=== PATIENT | female | born 1930 | race Caucasian/White ===

== ENCOUNTER 2016-07-06 16:48 | Inpatient (IN) | payer MEDICARE, BC ==
[~2016-07-06] VITALS: Ht 162.6 cm; Wt 68.7 kg
--- NOTE | ~2016-07-06 | DS ---
PATIENT'S NAME: SERA MUIR [facility] AGE: 85 Y [address] ROOM: [address] [place] [address] LOCATION: GPCU ADMIT DATE: 07/06/2016 Discharge Summary DISCHARGE DATE: 07/08/2016 FAMILY PHYSICIAN: Jah Lucia MD ATTENDING PHYSICIAN: Jah Lucia FINAL DIAGNOSES: 1. Supraventricular tachycardia, specific etiology undetermined, resolved. 2. Known coronary artery disease with stable angina factors. 3. Diabetes mellitus type 2. 4. Hypertension, essential. HOSPITAL COURSE: The patient is admitted through the emergency room with an elevated heartbeat that responded to a couple of doses of adenosine in the ER along with a Cardizem drip. The patient was seen by Dr. Kuhn, [facility] neurology technologist. The patient's medicines were adjusted and on the day of dismissal, she was seen by her primary neurology technologist, Dr. Kali Waldrop, and her medicines were adjusted. Her pulse rate was under 100 prior to going home and electrolyte, sugar, and CBC were otherwise grossly normal. She is dismissed from the hospital on a diabetic diet, activity as tolerated, and she will follow up with Dr. Waldrop in the office per his recommendation and see me in the office in a month. Her medications were adjusted and the med list she is dismissed on has been blessed by Dr. Waldrop. If she has a fast heartbeat, chest pain, or shortness of breath, she is to be seen back earlier and she understands. JAH LUCIA MD PORCELAIN TURNER/modl /[id number] d: 07/08/162225 t: 07/14/16 1025, DISCHARGE SUMMARY
--- NOTE | ~2016-07-06 | ECHO ---
Transthoracic Echocardiography Report (TTE) Demographics Patient Name SERA MUIR Date of Study 07/07/2016 Patient Number [id number] Visit Number [id number] Date of 1930 Room Number G6326 Gender Female Number Age 85 year(s) Referring Rea De La Fuente [employer] Ashley Sumner RDCS, Physician RVT Bam Murillo Physician Interpreting Bam Murillo [employer] Workers Physician Trudy Arias MD Supervising Ordering Bam Murillo MD/MLP Physician Nurse Stress [employer] Technical Systems Specialist Conclusions Summary Hyperdynamic LV systolic function. The estimated left ventricular ejection fraction is > 75%. Moderate concentric left ventricular hypertrophy. Diastolic assessment reveals Grade II pseudonormal diastolic function . The left atrium is severely dilated by LA volume index measurement. Moderate mitral annular calcification. Mild mitral valve stenosis. The mean gradient is 5 mmHg. Moderate mitral regurgitation. The aortic valve is moderately sclerotic. There is moderate aortic regurgitation by color Doppler. Mild-moderate tricuspid regurgitation by color Doppler. There is severe pulmonary hypertension. The pulmonary pressure (RVSP) is 59.62 mmHg. Procedure Type of Study TTE procedure:2D Echocardiogram. Procedure Date Date: 07/07/2016 Start: 09:22 AM Study Location: Inpatient Portable Technical Quality: Adequate visualization Indications:Chest pain. Appropriate Use Criteria: 9 Patient Status: Routine HR: 66 bpm BP: 152/70 mmHg M-Mode/2D Measurements LV Diastolic Dimension: 3.05 cm LV Systolic Dimension: 1.85 cm LV Septum Diastolic: 1.44 cm LV PW Diastolic: 1.47 cm AO Root Dimension: 3.1 cm Cardiac Output: 7.9 l/min AV Cusp Separation: 1.5 cm RV Diastolic Dimension: 3.28 cm LA volume: 82 ml MV EPSS: 0.2 cm LVOT: 2.2 cm RV Base: 2.69 cm LVOT VTI: 31.5 cm RV Mid: 2.2 cm LV Stroke volume: 119.68 ml TAPSE: 2.29 cm TDI-S': 14.4 cm/s Doppler Measurements AV Peak Velocity: 1.48 m/s MV Peak E-Wave: 1.47 m/s AV Peak Gradient: 8.76 mmHg MV Peak A-Wave: 0.91 m/s AV Mean Gradient: 6 mmHg MV E/A Ratio: 1.61 LVOT Peak Velocity: 1.45 m/s MV Mean Gradient: 5 mmHg AV P1/2t: 471 msec MV Deceleration Time: 173 msec TR Velocity:3.34 m/s PV Peak Velocity: 0.97 m/s TR Gradient:44.62 mmHg PV Peak Gradient: 3.77 mmHg Estimated RAP:15 mmHg Estimated PASP: 59.62 mmHg Estimated RVSP: 60 mmHg A' Septal Velocity: 0.05 m/s E' Septal Velocity: 0.04 m/s A' Lateral Velocity: 0.05 m/s E' Lateral Velocity: 0.07 m/s Findings Left Ventricle Moderate concentric left ventricular hypertrophy. Diastolic assessment reveals Grade II pseudonormal diastolic function . Right Ventricle Normal right ventricle structure and function. Left Atrium The left atrium is severely dilated by LA volume index measurement. Right Atrium Normal right atrial size. IVC measures 2 cm with inspiratory collapse. Mitral Valve Moderate mitral annular calcification. Mild mitral valve stenosis. The mean gradient is 5 mmHg. Moderate mitral regurgitation by color Doppler. Aortic Valve The aortic valve is moderately sclerotic. There is moderate aortic regurgitation by color Doppler. Tricuspid Valve Mild-moderate tricuspid regurgitation by color Doppler. There is severe pulmonary hypertension. The pulmonary pressure (RVSP) is 59.62 mmHg. Pulmonic Valve Mild pulmonic valve regurgitation by color Doppler. Pericardial Effusion No evidence of pericardial effusion. Miscellaneous Visualized portions of the aortic root and ascending aorta appear normal in size. Pleural Effusion No evidence of pleural effusion. Signature dtt: FABIEN LOWE dtd: 07/07/16 0922 Physician Self Edit
--- NOTE | ~2016-07-06 | HP ---
PATIENT'S NAME: LISA MUIR [facility] AGE: 85 Y [address] ROOM: [place] [address] LOCATION: GPCU ADMIT DATE: 07/06/2016 History & Physical DISCHARGE DATE: FAMILY PHYSICIAN: KRISTINE JALLOH MD ATTENDING PHYSICIAN: KRISTINE JALLOH DATE OF SERVICE: CHIEF COMPLAINT: Palpitations. HISTORY IS PRESENT ILLNESS: Lisa is a pleasant 85-year-old female, well known to me, in the outpatient arena, who presented to the emergency room with a friend because she felt her heart beat was going too fast. Here in the emergency room, she was seen by Dr. Kelechi Mota. She required adenosine and Cardizem to get her pulse rate come down from 170-180 down to the 90s. I saw her in the emergency room. She is resting quietly. I have obtained cardiac consultation with [facility], residential concierge interpersonal communications professor, Dr. Kuhn. The patient understands that she is a type 2 diabetic with known carotid disease, atrial fibrillation, hypertension, hypothyroidism, and has been recently seen by her primary residential concierge Dr. Kali Waldrop over the last three months. We will follow along daily. I really think Cardiology can direct program here to get her better. She is on, 1. Cozaar 50 mg twice a day. 2. Lasix 40 mg a day. 3. Synthroid 0.05 mg a day. 4. Glyburide/Amaryl 1 mg a day. 5. Metformin 500 mg 3 times a day. 6. Rythmol 150 twice a day. 7. Tylenol. 8. Aspirin 81. 9. Vitamins. ALLERGIES TO MEDICATIONS: To codeine. PREVIOUS OPERATIONS: See old records. PATIENT'S NAME: LISA MUIR [facility] AGE: 85 Y [address] ROOM: [place] [address] LOCATION: GPCU ADMIT DATE: 07/06/2016 History & Physical DISCHARGE DATE: FAMILY PHYSICIAN: KRISTINE JALLOH MD ATTENDING PHYSICIAN: KRISTINE JALLOH SOCIAL HISTORY: Does not smoke. FAMILY HISTORY: Noncontributory. IMMUNIZATIONS: Up to date for age. REVIEW OF SYSTEMS: HEENT: She has had no visual changes. No earache. No sore throat. ENDOCRINE: She has hypothyroid and type 2 diabetic, treated with oral agents. LUNGS: No history of asthma. HEART: As mentioned. GI: No recent nausea, vomiting, diarrhea, change in bowel habits, or melena. : No dysuria or frequency. 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 NEUROLOGIC: History of previous TIA. No recent stroke syndrome. Mood, no recent depression or anxiety. PHYSICAL EXAMINATION: GENERAL: Lara-haired female who appears her stated age. She is oriented to person, place, time, and competent. HEENT: Shows pupils react to light. TMs not visualized. Posterior pharynx clear. NECK: Unremarkable. I did not listen for bruits. Thyroid is not enlarged. LUNGS: Clear to auscultation. HEART: Shows no murmur, gallop, or rub. ABDOMEN: Benign without point tenderness. PELVIC: Not done. RECTAL: Not done. BREASTS: Not done. EXTREMITIES: Show trace edema. Pulses full throughout. NEUROLOGIC: Grossly intact without lateralizing signs. Cranial nerves intact. ASSESSMENT: 1. Supraventricular tachycardia, rate 170, resolved with adenosine and Cardizem drip. 2. History of coronary artery disease. 3. Hypertension, essential. 4. Atrial fibrillation. 5. Hypothyroidism, on replacement. 6. Diabetes mellitus type 2. PATIENT'S NAME: LISA MUIR [facility] AGE: 85 Y [address] ROOM: [place] [address] [facility] AD[facility] DATE: 07/06/2016 History & Physical DISCHARGE DATE: FAMILY PHYSICIAN: KRISTINE JALLOH MD ATTENDING PHYSICIAN: KRISTINE JALLOH PLAN: As above. KRISTINE JALLOH MD MEDICAL DIRECTOR OCCUPATIONAL HEALTH/modl /[id number] D: T: HISTORY & PHYSICAL
--- NOTE | ~2016-07-06 | ER ---
PATIENT'S NAME: SERA MUIR [facility] AGE: 85 Y [address] ROOM: [place] [address] LOCATION: GPCU ADMIT DATE: 07/06/2016 ER/Outpatient Report DISCHARGE DATE: FAMILY PHYSICIAN: KRISTINE LUCIA MD ATTENDING PHYSICIAN: KRISTINE LUCIA Admission date and time documented on the medical record. I saw the patient at 1700 hours. CHIEF COMPLAINT: Chest pain, tachyarrhythmia. HISTORY OF PRESENT ILLNESS: This patient is an 85-year-old female who presented to the emergency room with 5-hour history of mid anterior chest pain, nonradiating, accompanied by shortness of breath, mild diaphoresis, and generalized weakness. Little lightheaded, dizzy at times, but no syncope or near syncope. No headache; eyes, ears, nose, throat, neck, or spine pain. No fall or trauma. No recent colds, coughs, flus, fever, chills, or sweats. Mid anterior chest pain is nonradiating. She has no shoulder, arm, neck, or jaw pain or mid back pain. She was found to have regular tachyarrhythmia at a rate of 178 with a blood pressure 133/90. She was saturating 96% on room air. No abdominal pain, nausea, vomiting, diarrhea, or urinary complaints. No joint or muscle swelling, redness, or pain. No skin eruptions or rash. Does have hypothyroidism, gvo-glaxank-zvylhkwww diabetes mellitus type 2. Does have depression and anxiety. No neuro changes. HOME MEDICATIONS: See attached medication list. ALLERGIES: NUTS AND CODEINE. SOCIAL HISTORY: Nonsmoker and nondrinker. SIGNIFICANT PAST MEDICAL HISTORY: Hypertension, macular degeneration, hypothyroidism, wwo-sshaujp-uuhittxgp diabetes mellitus type 2, dyslipidemia, diverticulosis, diverticulitis, osteoporosis, degenerative joint disease, degenerative osteoarthritis, bladder cancer, depression, and anxiety. OPERATIONS: Cystoscopy, tonsillectomy, adenoidectomy, cholecystectomy, right total hip arthroplasty, cataract extraction, and oral dental surgery. PATIENT'S NAME: SERA MUIR [facility] AGE: 85 Y [address] ROOM: [place] [address] LOCATION: GPCU ADMIT DATE: 07/06/2016 ER/Outpatient Report DISCHARGE DATE: FAMILY PHYSICIAN: KRISTINE LUCIA MD ATTENDING PHYSICIAN: KRISTINE LUCIA REVIEW OF SYSTEMS: All systems reviewed by me are negative with the exception of those discussed in the history of present illness. PHYSICAL EXAMINATION: VITAL SIGNS: Temperature 96.2 tympanic, pulse 178 and regular, respirations 20, blood pressure 133/90, and O2 saturation on room air is 96%. HEENT: Head: Normocephalic. Eyes, Ears, Nose, Throat: Clear. Mucous membranes moist. NECK: Negative. LUNGS: Clear. Good air flow. No rales, rhonchi, or wheezes. HEART: Tachy, regular. Pulses are palpable. No chest wall or ribcage pain to palpation. ABDOMEN: Soft, nondistended, nontender. Good bowel tones. No organomegaly or abnormal mass palpable. EXTREMITIES: Without peripheral edema, cyanosis, or deformity. NEUROVASCULAR: Intact. SKIN: Clear. No skin eruptions or rash. DIAGNOSTIC DATA: Chest x-ray showed no acute infiltrate or changes. We will review x-ray with the radiologist. EKG showed what looks to be an SVT at a rate of 177. LABORATORY DATA: CMS was normal except an elevated glucose of 233, elevated creatinine 1.2, low GFR of 42. Magnesium 1.8. CPK was 96. Unduy-ln-prvy cardiac enzymes were normal. ProBNP was 1133. EMERGENCY DEPARTMENT COURSE: I did start an IV, gave her 6 mg of adenosine IV push. The patient converted briefly, then went back into an SVT. We then gave her 12 mg of adenosine IV push. She did convert again briefly and went back into SVT rhythm. Gave her 10 mg of Cardizem IV push, dropped a rate into the low 90s, regular, and remained there. We kept her on Cardizem 10 mg/hour IV drip. IMPRESSION: 1. Supraventricular tachycardia with tachy rate of 178. 2. Chest pain, most likely secondary to supraventricular tachycardia. 3. Jbo-fishlvl-ztmzimfas diabetes mellitus type 2. 4. Hypothyroidism. 5. Dyslipidemia. 6. Hypertension. PLAN: PATIENT'S NAME: SERA MUIR [facility] AGE: 85 Y [address] ROOM: [place] [address] [facility] AD[facility] DATE: 07/06/2016 ER/Outpatient Report DISCHARGE DATE: FAMILY PHYSICIAN: KRISTINE LUCIA MD ATTENDING PHYSICIAN: KRISTINE LUCIA Discussed the patient with Dr. Lucia, the patient's personal physician. We will admit to U telemetry. Also talked with Dr. Arias, flight coordinator, who will see the patient. Discussion ensued with the patient concerning my findings and recommendations, she understands. Accumulated critical care time 30 minutes. MD BUBBA WARE/modl /[id number] d: 07/07/16 0040 t: 07/07/16 0617, OUTPATIENT REPORT
--- NOTE | ~2016-07-06 | CON ---
PATIENT'S NAME: SERA REEDER [facility] AGE: 85 Y [address] ROOM: [address] [address] [facility] AD[facility] DATE: 07/06/2016 Consultation DISCHARGE DATE: FAMILY PHYSICIAN: KRISTINE LUCIA MD ATTENDING PHYSICIAN: KRISTINE LUCIA DATE OF CONSULTATION: 07/06/2016 REFERRING PHYSICIAN: FABIEN LOWE MD REFERRING PHYSICIAN: Kristine Lucia M.D. REASON FOR CONSULT: Wide complex tachycardia. HISTORY OF PRESENT ILLNESS: Ms. Reeder is a pleasant 85-year-old lady, who normally follows with Dr. Waldrop for cardiac care. The patient has been on propafenone. She is a known patient with hypertension. The patient has been symptomatic since 1 p.m. today. She developed palpitations and chest pain. The symptoms continued for over 3 to 4 hours and then she was brought to the emergency room. She was found to be in wide complex rhythm. She was given adenosine 6 and 12 mg with no response. Subsequently, she was given Cardizem, following which her heart rate decreased to 90s. She is presently on Cardizem drip at 10 mg per hour. The patient denied any chest pain at the present time. The patient also stated that she has shortness of breath while having palpitations. No history of syncope or presyncope. REVIEW OF SYSTEMS: The patient has macular degeneration and complained of diminish in vision in both eyes. History of nausea is present. No history of vomiting. No history of fever. History of occasional cough with small amount of mucoid expectoration. No urinary symptoms. No bowel symptoms. No history of syncope. No history of chest pain on exertion. Review of other systems are essentially negative. PAST MEDICAL HISTORY: Hypertension, hypothyroidism, and diabetes. The patient stated that she was told to have a heart condition, however, does not remember what it was. The patient stated she has been following up with Dr. Waldrop and has been taking propafenone. History of bladder carcinoma. PERSONAL HISTORY: Quit smoking over 20 years ago. Occasionally has alcoholic beverage. PATIENT'S NAME: SERA REEDER [facility] AGE: 85 Y [address] ROOM: [address] [address] [facility] AD[facility] DATE: 07/06/2016 Consultation DISCHARGE DATE: FAMILY PHYSICIAN: KRISTINE LUCIA MD ATTENDING PHYSICIAN: KRISTINE LUCIA SOCIAL HISTORY: The patient is . FAMILY HISTORY: No family history of ischemic heart disease. PAST SURGICAL HISTORY: History of cholecystectomy. CURRENT MEDICATIONS: 1. Losartan 50 mg b.i.d. 2. Furosemide 40 mg daily. 3. Levothyroxine. 4. Glimepiride. 5. Metformin. 6. Propafenone 150 mg b.i.d. PHYSICAL EXAMINATION: GENERAL: The patient is awake, alert, oriented, and in no distress. VITAL SIGNS: Her pulse rate is 94 beats per minute and blood pressure is 138/68. HEENT: Her head is atraumatic and normocephalic. Tongue is moist. NECK: No significant jugular venous distention is present. CARDIOVASCULAR: S1 and S2 are audible. They are regular in rate and rhythm. Grade 2/6 ejection systolic murmur is audible in the left parasternal area. RESPIRATORY: Bilateral vesicular breath sounds are audible with no adventitious sounds. ABDOMEN: Mild distention is present. Abdomen is soft and nontender. Bowel sounds are present. Scar vega from previous surgeries present. EXTREMITIES: Showed no significant pedal edema. NEUROLOGIC: The patient is awake, alert, and oriented. No focal neurological deficit noted. SKIN: Warm and dry. LABORATORY DATA: CO2 is 27, glucose 233, calcium 8.9, BUN 22, creatinine 1.2, albumin 3.7, globulin 3.7, AST 17, ALT 15, magnesium 1.8, total cholesterol in 2016 was 179, troponin less than 0.04, ProBNP 1133. White blood cell count 12.8, hemoglobin 12.1, hematocrit 38.6, and platelet count 345. IMAGING: Her echocardiogram done in 2014, showed normal ejection fraction, moderate-to- severe mitral annular calcification, mild mitral regurgitation, mild aortic regurgitation. Her initial EKG showed wide complex tachycardia at 177 beats per minute. Her repeat EKG then at 05:10 p.m. showed wide complex rhythm at PATIENT'S NAME: SERA REEDER [facility] AGE: 85 Y [address] ROOM: [address] [place], [place] [address] [facility] ADMIT DATE: 07/06/2016 Consultation DISCHARGE DATE: FAMILY PHYSICIAN: KRISTINE LUCIA MD ATTENDING PHYSICIAN: KRISTINE LUCIA 96 beats per minute with right bundle branch block pattern. ASSESSMENT AND PLAN: 1. Wide complex tachycardia, ventricular tachycardia versus supraventricular tachycardia with aberrant conduction. Since the patient also complained of chest discomfort during this episode, ischemic etiology cannot be excluded. Discussed with the patient risks and benefits of cardiac catheterization, however, the patient wants only conservative therapy and declined cardiac catheterization. In view of wide complex tachycardia, we will start the patient on amiodarone bolus and drip and discontinue Cardizem. We will also start the patient on aspirin, low-dose beta- sissy, and heparin for possible acute coronary syndrome. 2. Hypertension. Continue losartan. 3. Diabetes mellitus. 4. History of bladder carcinoma. 5. We will obtain serial EKGs and 2D echocardiogram in a.m. The plan of care was discussed with Dr. Lucia. 6. We will also give the patient 1 gram of magnesium to keep magnesium level over 2 g/dL and monitor magnesium levels. Thank you for allowing us in taking part in the care of this pleasant lady. MD SERINA STEWART/modl /[id number] d: 07/07/16 0048 t: 07/22/16 0927, CONSULTATION REPORT
[2016-07-06 17:17] LABS: BASOPHIL # 0.1 K/uL (0.0-0.2); BASOPHIL % 0.5 %; EOSINOPHIL # 0.1 K/uL (0.0-0.5); EOSINOPHIL % 0.6 %; HEMATOCRIT 38.6 % (30.0-46.0); HEMOGLOBIN 12.1 g/dL (10.0-15.0); IMMATURE GRANULOCYTE # 0.1 K/uL (0.0-0.3); IMMATURE GRANULOCYTE % 0.5 %; LYMPHOCYTE # 1.8 K/uL (0.8-4.0); LYMPHOCYTE % 13.9 %; MCH 27.8 pg (27.0-34.0); MCHC 31.3 gm/dL (32.0-36.5); MCV 88.5 fl (83.0-98.0); MONOCYTE # 0.6 K/uL (0.0-1.0); MONOCYTE % 4.4 %; MPV 9.9 fl (9.4-12.4); NEUTROPHIL # (ANC) 10.3 K/uL (1.8-7.8); NEUTROPHIL % 80.1 %; NRBC % 0 /100WBC (0-0.00); PLATELET COUNT 345 K/uL (150-450); RBC 4.36 M/uL (3.00-5.00); RDW-CV 14.5 % (11.9-14.6); WBC 12.8 K/uL (4.0-11.0)
[2016-07-06 17:38] LABS: ALBUMIN 3.7 gm/dL (3.5-5.0); ALK PHOS 70 IU/L (33-138); ALT 15 IU/L (12-78); BLOOD UREA NITROGEN 22 mg/dL (6-24); CALCIUM 8.9 mg/dL (8.5-10.5); CHLORIDE 102 mMol/L (96-110); CO2 27 mMol/L (22-32); CPK 96 IU/L (21-215); CREATININE 1.2 mg/dL (0.5-1.1); ESTIMATED GFR (MDRD EQUATION) 42; SODIUM 140 mMol/L (135-145); TOTAL BILIRUBIN 0.2 mg/dL (0.0-1.5); TOTAL PROTEIN 7.4 g/dL (6.0-8.4)
[2016-07-06 17:39] LABS: ANION GAP 15.4 (10.0-19.0); AST 17 IU/L (10-40); MAGNESIUM 1.8 mg/dL (1.8-2.6); POTASSIUM 4.4 mMol/L (3.7-5.1)
[2016-07-06 18:00] LABS: INR - (THERAPEUTIC) 0.99 (0.92-1.07); PROTIME 10.4 SECONDS (9.8-11.4); PTT 28 SECONDS (25-32)
[2016-07-06] MEDS ORDERED: COZAAR50 MG PO (21:07)
[2016-07-06] MEDS ORDERED: LASIX40 MG PO (21:07)
[2016-07-06] MEDS ORDERED: LEVOTHROID (S112 MCG PO (21:08)
[2016-07-06] MEDS ORDERED: AMARYL1 MG PO (21:10)
[2016-07-06] MEDS ORDERED: GLUCOPHAGE500 MG PO (21:11)
[2016-07-06] MEDS ORDERED: TYLENOL325 MG PO (21:12)
[2016-07-06] MEDS ORDERED: RYTHMOL150 MG PO (21:12)
[2016-07-06] MEDS ORDERED: PRESERVISION L1 EACH PO (21:13)
[2016-07-06] MEDS ORDERED: ASPIRIN325 MG PO (21:13)
--- NOTE | 2016-07-07 00:04 | NUR ---
Patient is an 85 year old female who reside in [place]. When at home she started to have a weird feeling in her chest and her heart was racing, she called a friend to bring her to the ER. Presented in the ER with HR 180s, adenosine 18mg total given alone with cardizem bolus and gtt which converted her. No c/o chest pain. Cardiac enzymes negative. Admit to PCU. Patient is a DNR/DNI. Allergies to nuts and codine. VSS on admission R)FA IV infusing cardizem from transfer.
--- NOTE | 2016-07-07 04:19 | NUR ---
PATIENT IS A&OX3 THIS SHIFT. CON'T TO HAVE NO C/O CHEST PAIN OR SOB. WEANED OF 02 BUT SATS DROPPED TO MID 80'S SO RESTARTED ON O2 AT 2L. RECENT EKG SHOWS SINUS BRADYCARDIA WITH PROLONGED QT INTERVAL. VSS ON 2L. PATIENT AMBULATES WELL WITH STAND BY ASSIST. ON HEPARIN 1,000 UNITS/HR, NEXT PTTHP IS 1015. AMNI DRIP AT 0.5 MG/MIN. 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 AM LABS TO BE DRAWN 0615.
[2016-07-07 06:51] LABS: BASOPHIL # 0.1 K/uL (0.0-0.2); BASOPHIL % 0.6 %; EOSINOPHIL # 0.2 K/uL (0.0-0.5); EOSINOPHIL % 1.7 %; HEMATOCRIT 33.9 % (30.0-46.0); HEMOGLOBIN 10.7 g/dL (10.0-15.0); IMMATURE GRANULOCYTE % 0.4 %; LYMPHOCYTE # 3.4 K/uL (0.8-4.0); LYMPHOCYTE % 31.2 %; MCH 28.1 pg (27.0-34.0); MCHC 31.6 gm/dL (32.0-36.5); MONOCYTE % 8.7 %; MPV 9.5 fl (9.4-12.4); NEUTROPHIL # (ANC) 6.3 K/uL (1.8-7.8); NEUTROPHIL % 57.4 %; NRBC % 0 /100WBC (0-0.00); PLATELET COUNT 289 K/uL (150-450); RBC 3.81 M/uL (3.00-5.00); RDW-CV 14.6 % (11.9-14.6); WBC 10.9 K/uL (4.0-11.0)
[2016-07-07 07:17] LABS: ANION GAP 9.8 (10.0-19.0); CALCIUM 8.5 mg/dL (8.5-10.5); CREATININE 1.1 mg/dL (0.5-1.1); MAGNESIUM 2.3 mg/dL (1.8-2.6); POTASSIUM 3.8 mMol/L (3.7-5.1)
--- NOTE | 2016-07-07 18:50 | NUR ---
PATIENT HAS HEPARIN RUNNING AT 1000 UNITS CONTINUOUSLY. TWO IV'S IN RIGHT FOREARM, BOTH FLUSHED WELL WITH NO COMPLICATIONS. PATIENT HAD SBP'S BETWEEN 170-200 THIS AFTERNOON, SO DR. VELARDE ORDERED EKG AND ALSO PUT IN AN ORDER FOR AMIODARONE PO AND NORVASC. BLOOD PRESSURE DURING 1500 ASSESSMENT WAS 179/75. PATIENT IS ON 2L O2 AND HAS BEEN SATTING IN HIGH 90'S. PATIENT IS ACHS MILD SLIDING SCALE AND DID NOT RECEIVE ANY INSULIN TODAY FOR BG. PATIENT GETS UP TO THE BATHROOM AND IS STANDBY ASSIST. PATIENT HAD ONE BM THIS MORNING. SHE HAS BEEN UP IN THE CHAIR SINCE THIS AFTERNOON. PATIENT REFUSED LASIX THIS MORNING AND STATED THAT SHE DID NOT WANT TO GET UP TO THE BATHROOM MULTIPLE TIMES THROUGHOUT THE DAY TO VOID.
--- NOTE | 2016-07-08 04:58 | NUR ---
Significant Event: A/0 X 3, COOPERATIV WITH CARES. AMBULTES STAND BY ASSIST. SBP'S 160-180'S, AFTER HS MEDS (3RD ASSESSMENT) BP WAS 116/55 WITH HR IN THE LOW 50'S. ATTEMPTED TO WEEN FROM 2L O2 BUT FAILED. AFEBRILE. HEPARIN GTT AT 1000 UNITS/HR, NEXT PTT-HP 0530. DENIED ALL PAIN. Follow up:
[2016-07-08 08:11] LABS: ALBUMIN 3.1 gm/dL (3.5-5.0); ALK PHOS 57 IU/L (33-138); ALT 13 IU/L (12-78); AST 11 IU/L (10-40); TOTAL BILIRUBIN 0.2 mg/dL (0.0-1.5); TOTAL PROTEIN 6.4 g/dL (6.0-8.4)
--- NOTE | 2016-07-08 15:19 | NUR ---
Introduced self and role of care management to patient. She lives in [place] by herself. She states that she is able to do all her own ADL's. She states that she has "lots" of friends that are available to assist if needed. She plans on returning home on discharge. She denies any needs at this time. Will continue to follow.
--- NOTE | 2016-07-08 16:40 | NUR ---
Significant events: Patient is alert and oriented x 3. Stand by assist in halls and to the bathroom. Bradycardic with rates in the 50's. Discontinued O2. SaO2's in low 90's, tolerating well. Lungs are clear and diminished. Denies shortness of breath, unless walking in halls. Synthroid increased to 150 mcg this shift. SBP 120-168. Good appetite. Refused Lasix this AM. States that she will resume taking it when she gets home. Heparin DC'd at 0720. Right forearm IV SL. Right wrist IV SL. Follow up: Discharget to home today.
[2016-07-08] MEDS ORDERED: CORDARONE,PACE200 MG PO (17:22)
[2016-07-08] MEDS ORDERED: NORVASC2.5 MG PO (17:25)
--- NOTE | 2016-07-08 17:57 | NUR ---
Patient discharged home 1755 by student nurse via wheel chair. Patient picked up by family friend in private car. Patient verbalizes understanding of discharge instructions given by Roseanna Kelly RN.
== END 2016-07-08 17:50 | disposition disaster alternative care site (69) | DRG 310 ==
LOC: GMED 16:48 → GPCU 18:21
PROVIDERS: Emergency Medicine; Internal Medicine Interventional Cardiology; ADMIT Family Medicine
DX: I47.1 Supraventricular tachycardia (principal); E11.9 Type 2 diabetes mellitus without complications; I48.91 Unspecified atrial fibrillation; I10 Essential (primary) hypertension; I25.10 Atherosclerotic heart disease of native coronary artery without angina pectoris; E03.9 Hypothyroidism, unspecified; Z79.01 Long term (current) use of anticoagulants; Z85.51 Personal history of malignant neoplasm of bladder; Z66 Do not resuscitate
CPT/HCPCS: J0153; J0282; J1644; J3475

== ENCOUNTER → 2016-07-26 | Outpatient (CLI) | payer MEDICARE, BC ==
[~2016-07-26] MED LIST: AMARYL1 MG PO; ASPIRIN325 MG PO; BETAPACE (GENER80 MG PO; CORDARONE,PACE200 MG PO; COZAAR50 MG PO; GLUCOPHAGE500 MG PO; LASIX40 MG PO; LEVOTHROID (S100 MCG PO; LEVOTHROID (S112 MCG PO; LIVALO4 MG PO; NORVASC2.5 MG PO; PRESERVISION L1 EACH PO; RYTHMOL150 MG PO; TYLENOL325 MG PO
[2016-07-26 12:26] LABS: ALBUMIN 3.9 gm/dL (3.5-5.0); CALCIUM 9.4 mg/dL (8.5-10.5); CREATININE 1.1 mg/dL (0.5-1.1); MAGNESIUM 1.9 mg/dL (1.8-2.6); PHOSPHORUS 2.9 mg/dL (2.5-4.9)
== END ==
LOC: LCNC 12:05
PROVIDERS: Internal Medicine Interventional Cardiology
DX: R07.89 Other chest pain (principal)

== ENCOUNTER → 2016-10-22 | Outpatient (CLI) | payer MEDICARE, BC ==
[2016-10-22 15:05] LABS: ALBUMIN 3.2 gm/dL (3.5-5.0); ALK PHOS 95 IU/L (33-138); ALT 26 IU/L (12-78); AST 19 IU/L (10-40); TOTAL PROTEIN 7.3 g/dL (6.0-8.4)
[2016-10-22 15:17] LABS: TOTAL BILIRUBIN 0.3 mg/dL (0.0-1.5)
== END ==
LOC: LCNC 14:32
PROVIDERS: Internal Medicine Interventional Cardiology
DX: Z79.899 Other long term (current) drug therapy (principal); R07.89 Other chest pain

== ENCOUNTER 2016-11-24 14:39 | Inpatient (IN) | payer MEDICARE, BC ==
[~2016-11-24] VITALS: Ht 160 cm; Wt 62.7 kg
--- NOTE | ~2016-11-24 | ER ---
PATIENT'S NAME: SERA MUIR [facility] AGE: 86 Y [address] ROOM: [place] [address] LOCATION: GICU ADMIT DATE: 11/24/2016 ER/Outpatient Report DISCHARGE DATE: FAMILY PHYSICIAN: KRISTINE JALLOH MD ATTENDING PHYSICIAN: KRISTINE JALLOH CHIEF COMPLAINT: Trouble breathing. HISTORY OF PRESENT ILLNESS: Ms. Muir notes that for the last few days her breathing has been getting worse. It is particularly bad with exertion. It is better with rest. She states that she has been having issues lately. Her heart rate has also been low and they have been adjusting her thyroid medication. She follows primarily with Dr. Jalloh. She denies any chest pain associated with this, denies any swelling of her peripheral extremities. She does have a smoking history, but does not currently smoke. She does not typically use oxygen, but is feeling better with some oxygen here. She did arrive by private vehicle. She has not really taken anything for this and there is no particular reason that she decided to come in today other than she just was not getting better. PAST MEDICAL HISTORY: Documented on the record and reviewed by me. SOCIAL HISTORY: Documented on the record and reviewed by me. MEDICATIONS: Documented on the record and reviewed by me. ALLERGIES: DOCUMENTED ON THE RECORD AND REVIEWED BY ME. REVIEW OF SYSTEMS: All systems reviewed and negative except as noted in the HPI. PHYSICAL EXAMINATION: VITAL SIGNS: Blood pressure 160/73; pulse 41; respiratory rate 16; temperature 98.4; SpO2 is 91% on room air, 98% on 2 L nasal cannula. GENERAL: Age-appropriate female, upright on the exam table. No apparent pain or distress. NEUROLOGIC: Awake and alert. GCS is 15. No focal deficits. No asymmetry. Diffusely weak, but not inappropriate. HEENT: Normocephalic, atraumatic. Eyes are PERRL. Oropharynx is slightly dry. PATIENT'S NAME: SERA MUIR [facility] AGE: 86 Y [address] ROOM: [place] [address] LOCATION: GICU ADMIT DATE: 11/24/2016 ER/Outpatient Report DISCHARGE DATE: FAMILY PHYSICIAN: KRISTINE JALLOH MD ATTENDING PHYSICIAN: KRISTINE JALLOH NECK: Supple. Trachea is midline. CHEST/HEART: Regular. Bradycardia with no murmurs, but quieter heart tones. The lungs are with rhonchi at the bases bilateral, symmetric. ABDOMEN: Soft, nontender, and nondistended. No rebound, guarding, or masses. BACK: Normal to inspection and palpation with no spinal or paraspinal tenderness. EXTREMITIES: Warm, well formed, well perfused with no appreciable edema of the periphery. SKIN: Clean, dry, and intact. LABORATORY DATA AND X-RAYS: EKG is notable for sinus bradycardia with likely old infarct and first-degree heart block. CMS with no appreciable electrolyte abnormalities. Glucose of 176; BUN is 67; creatinine is 3.6, baseline is 1. GFR is 11. LFTs grossly unremarkable. Cardiac enzymes including CPK, CK-MB, and troponin are all within normal limits and troponin is undetectable. CRP is 2.97. Free T4 is 1.5, TSH is 0.68. ProBNP is 13,854. D-dimer is 0.82. INR is 1. Lactate is 4.6. Blood gas; pH is 7.43, pCO2 is 43, PO2 is 76, bicarb is 28.5 on 1 L nasal cannula. IMPRESSION: 1. Dyspnea. 2. Severe acute kidney injury. 3. Bradycardia without hypotension. 4. Components of heart failure. 5. Elevated D-dimer. EMERGENCY DEPARTMENT COURSE: The patient was seen and evaluated at bedside. She has a possibility for multiple pathologies. Broad differential was entertained including acute coronary syndrome, heart failure, PE, intrinsic lung disease. This was evaluated with labs. She was found to have a marked elevation of her renal function test. She also has components of heart failure with crackles at the bases and elevated proBNP as well as marked bradycardia. I did not intervene on her bradycardia as she is maintaining her blood pressure and she is mentating well. I discussed the case with the patient's primary care Dr. Jalloh, he will admit her to the hospital for further evaluation of these issues. He was made aware of all the lab findings. He requested Cardiology and Nephrology consults which were obtained for him. The patient will be admitted for further evaluation and treatment of these issues. All questions were answered and the patient was admitted. PATIENT'S NAME: SERA MUIR [facility] AGE: 86 Y [address] ROOM: [place] [address] LOCATION: CU ADMIT DATE: 11/24/2016 ER/Outpatient Report DISCHARGE DATE: FAMILY PHYSICIAN: KRISTINE JALLOH MD ATTENDING PHYSICIAN: KRISTINE JALLOH MD JH/barbaral /[id number] d: 11/25/16 0648 t: 11/25/16 0752, OUTPATIENT REPORT
--- NOTE | ~2016-11-24 | CON ---
PATIENT'S NAME: SERA MUIR [facility] AGE: 86 Y [address] ROOM: [place] [address] LOCATION: GPCU ADMIT DATE: 11/24/2016 Consultation DISCHARGE DATE: FAMILY PHYSICIAN: KRISTINE LUCIA MD ATTENDING PHYSICIAN: KRISTINE LUCIA DATE OF CONSULTATION: 11/24/2016 REFERRING PHYSICIAN: MAGO CANELA REQUESTING PHYSICIANS: 1. Kristine Lucia M.D. 2. Mike Alonso M.D. REASON FOR CONSULTATION: Dyspnea and bradycardia. HISTORY OF PRESENT ILLNESS: The patient is an 86-year-old lady who came to the emergency room. She had her friend drive her because of dyspnea on exertion, that became progressively worse over the last 3 to 4 days. The patient says that she has not had any chest pain. She has not had any orthopnea. She was able to continue sleeping at night in her own bed. She has been on oral diuretic and it was working very well until a few weeks ago when she has noticed decreased production of urine. Pertinent negatives in the review of systems is she denies any hematuria. She has no pelvic or back pain. She has a history of bladder carcinoma, which recurred once and was treated last time 1/[address] Obregon in June 2016. The patient presented with ventricular tachycardia. At that point, she was on propafenone for supraventricular arrhythmia. Looking in the chart, she also had an elevated troponin peak value of 0.467. The patient was offered cardiac catheterization, but she refused. Her proBNP was 1133 at that time. An echocardiogram was performed and the ejection fraction was hyperdynamic, estimated more than 75%. The patient was discharged on amiodarone. Other problems include hypertension, diabetes, and hypothyroidism. PAST MEDICAL HISTORY: Also include muscular degeneration. PAST SURGICAL HISTORY: Tonsillectomy, adenoidectomy, cholecystectomy, right hip replacement, cataract surgery, dental implants, and bladder carcinoma removed through cystoscopy twice. OUTPATIENT MEDICATIONS: 1. Amiodarone 200 mg daily. PATIENT'S NAME: SERA MUIR [facility] AGE: 86 Y [address] ROOM: [place] [address] LOCATION: GPCU ADMIT DATE: 11/24/2016 Consultation DISCHARGE DATE: FAMILY PHYSICIAN: KRISTINE LUCIA MD ATTENDING PHYSICIAN: KRISTINE LUCIA 2. Furosemide 40 mg daily. 3. Losartan 50 mg twice a day. 4. Glimepiride 1 mg daily. 5. Levothyroxine 100 mcg daily. 6. Metformin 500 mg daily. 7. Aspirin. 8. Livalo 4 mg daily. SOCIAL HISTORY: The patient is . 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 She has a history of smoking cigarettes that she quit in 1989. No significant alcohol use. Still lives independently. FAMILY HISTORY: Her mother from heart issues when she was 58 and previously she was also treated for carcinoma of the breast. Her father from aplastic anemia at 68. REVIEW OF SYSTEMS: Pertinent negatives and positives noted in the history of present illness. PHYSICAL EXAMINATION: VITAL SIGNS: She is a pleasant, alert, elderly woman. SKIN: Pale, but conjunctivae are pink. VITAL SIGNS: She weighs 65.7 kg, blood pressure was 168/73, pulse 41, temperature 98.4, and saturation 95% on room air. NECK: There was no jugular venous distention. No carotid bruits. LUNGS: Have thick rales at the bases bilaterally. HEART: Regular bradycardia with a 2/6 systolic murmur at the bases. ABDOMEN: Moderately obese, soft, and nontender. LOWER EXTREMITIES: No significant edema. IMAGING: Electrocardiogram shows sinus bradycardia, no old anteroseptal myocardial infarction, left axis deviation, poor R-wave progression in the precordial leads. LABORATORY DATA: WBC is 8.6, hemoglobin 10.6, hematocrit 33.7, and platelets 374. In June, hemoglobin was 12.1. Chemistry noted for BUN of 67 and creatinine of 3.6. Previous creatinine in July was 1.1. Glucose 176. Troponin I is below the measurement scale. CK-MB is 1.2. Pro-BNP is 13,854 and previous level was 1133 in June. Also, her D-dimer was 0.8. PATIENT'S NAME: SERA MUIR [facility] AGE: 86 Y [address] ROOM: [place] [address] LOCATION: GPCU ADMIT DATE: 11/24/2016 Consultation DISCHARGE DATE: FAMILY PHYSICIAN: KRISTINE LUCIA MD ATTENDING PHYSICIAN: KRISTINE LUCIA IMPRESSION: 1. Dyspnea on exertion, does not appear to be due to fluid overload. 2. Sinus bradycardia, probably a combination of amiodarone use and presence of sick sinus syndrome. 3. History of ventricular tachycardia in June and the patient refused coronary angiography. 4. Acute kidney injury. 5. History of hypertension. 6. History of diabetes. 7. History of dyslipidemia. 8. History of bladder carcinoma. PLAN: I will check lactic acid level since the patient has very poor renal function. She was on metformin. Right now, should hold all the cardiac medications and observe the patient on telemetry. Renal consultation is pending. I will repeat her echocardiogram. Thank you for allowing [facility] to assist in the care of your patient. Dr. Waldrop, her regular associate web developer, will resume on Friday. PANAYOTISALETA CASTELLANOS MD PE/modl /[id number] d: 11/24/16 2331 t: 11/26/16 0749, CONSULTATION REPORT
--- NOTE | ~2016-11-24 | CON ---
PATIENT'S NAME: SERA MUIR [facility] AGE: 86 Y [address] [place] [facility] [place] [address] LOCATION: GPCU ADMIT DATE: 11/24/2016 Consultation DISCHARGE DATE: 12/01/2016 FAMILY PHYSICIAN: Jah Lucia MD ATTENDING PHYSICIAN: Jah Lucia REFERRING PHYSICIAN: MAGO CANELA Consult for Dr. Fabian. HISTORY OF PRESENT ILLNESS: This pleasant 86-year-old lady is referred for rehab evaluation, [facility] admission. Was admitted on 11/24/2016 with increased shortness of breath. No chest pain. No cough. No expectoration. No fever. However, chest x-ray showed signs of congestive heart failure and she had elevated BUN and creatinine. Reportedly, her creatinine was up to 3.6 from her basic 1.3 from 2 weeks earlier. She was seen by a third mate and the amiodarone was put on hold. She also is on thyroid stimulating hormone and that was adjusted. PHYSICAL EXAMINATION: GENERAL: She is now alert, oriented, resting. No shortness of breath. Feels good. VITALS: Blood pressure 140/63, temperature 97.4, pulse 65, respirations 20 to 24. Height 5 feet 3 inches and weight 66.5. NEUROLOGICAL: She is intact. Speech is clear and not wet. Cranial nerves II through XII are within normal. NECK: Supple. Trachea is central. HEART: Regular sinus rhythm. ABDOMEN: Soft. CHEST: No chest pain at the present time. Chest is clinically clear. : She has a Onofre catheter in and has good bowel control. EXTREMITIES: She has no leg edema. Muscle strength throughout bilateral lower extremities 4- to 3+. Can go as far as 150 feet x1 and with a front-wheeled walker. MEDICATIONS: She is on the following medications. 1. Senna. 2. Colace. 3. Dulcolax. 4. Insulin NovoLog, mild. 5. Lasix. 6. MOM. PATIENT'S NAME: SERA MUIR [facility] AGE: 86 Y [address] ROOM: [place] [address] LOCATION: GPCU ADMIT DATE: 11/24/2016 Consultation DISCHARGE DATE: 12/01/2016 FAMILY PHYSICIAN: Jah Lucia MD ATTENDING PHYSICIAN: Jah Lucia 7. Heparin sodium. 8. Insulin detemir. 9. Valium. 10. NaCl. 11. Nitroglycerin. 12. Meropenem. 13. Levaquin. 14. Zofran. 15. Morphine sulfate. 16. Albuterol. 17. Aspirin. 18. Metolazone. 19. Glucagon. 20. Glucose. 21. Dextrose. 22. Protonix. 23. Levothroid. 24. Lipitor. 25. Tylenol. 26. MiraLAX. 27. Insulin aspartate, mild scale. ASSESSMENT AND PLAN: She can ambulate 150 feet with a front wheel. I think she can go home. However, if she is unable to go home, I will be happy to take her for intensive rehabilitation for about 1 week to 10 days aiming to discharge her at modified independence. She has made good progress so far, but she lives alone and needs to be safe. Thank you for this referral. All the above was explained to her. She verbalized understanding and agreement. YAMILE PARISH MD WMS/modl /[id number] d: 11/29/16 2131 t: 12/03/16 0705, CONSULTATION REPORT
--- NOTE | ~2016-11-24 | HP ---
PATIENT'S NAME: SERA MUIR [facility] AGE: 86 Y [address] ROOM: [address] [place] [address] LOCATION: [facility] ADMIT DATE: 11/24/2016 History & Physical DISCHARGE DATE: FAMILY PHYSICIAN: KRISTINE JALLOH MD ATTENDING PHYSICIAN: KRISTINE JALLOH DATE OF SERVICE: CHIEF COMPLAINT: Shortness of breath. HISTORY OF PRESENT ILLNESS: Pleasant 86-year-old female, who presented to the emergency room today with an increasing shortness of breath no evidence of acute FL, but findings by chest x-ray, elevated BNP, signs of increasing congestive heart failure. She was found in the emergency room also to have an elevated creatinine up to 3.6 compared to her baseline around 1.2 couple months ago. Historically, her primary message clerk is Dr. Kali Waldrop. She had been seen by him in the last two or three weeks and had her amiodarone held, and because her TSH was suppressed, her Synthroid was adjusted from 0.15 mg to 0.1 mg. She, along with shortness of breath, has had no starla chest pain, but some shortness of breath with exertion. In the emergency room, her cardiac enzymes are negative for acute FL. I was notified by Dr. Mike Alonso, ER physician, of the patient's condition and reasons for admission. When I came to see the patient at 6:30 p.m. on the day of admission, she was resting quietly in bed, having no chest pain, but says she has been short of breath recently. Here in the hospital, she has had bradycardia on the monitor. No evidence of starla V-tach or V-fib. By the time I saw her, she has been seen by Dr. Foster, the orthophoto tech/draftsman and also has been seen by Dr. Ferrera, message clerk at [facility] who is covering for Dr. Kali Waldrop this weekend over . Our plan at this point is as per Dr. Foster, with gentle rehydration to watch her pulse rate and lung condition as that is done, and second by Dr. Ferrera, check an echocardiogram and hold her blood pressure medicines for the most part now and see if she ends up qualifying herself for pacemaker, I suspect, or other therapy for congestive heart failure as indicated. She therefore was admitted with a diagnosis of acute on chronic congestive heart failure, bradycardia, and acute kidney injury. MEDICATIONS: Noted and reviewed. PATIENT'S NAME: SERA MUIR [facility] AGE: 86 Y [address] ROOM: [place] [address] LOCATION: [facility] ADMIT DATE: 11/24/2016 History & Physical DISCHARGE DATE: FAMILY PHYSICIAN: KRISTINE JALLOH MD ATTENDING PHYSICIAN: KRISTINE JALLOH ALLERGIES: NOTED AND REVIEWED. SOCIAL HISTORY: Does not smoke. FAMILY HISTORY: Noncontributory. PREVIOUS OPERATIONS: See old records. PHYSICAL EXAMINATION: HEENT: She wears glasses. Ears are not visualized. Posterior pharynx is clear. NECK: Shows no thyroid enlargement. No adenopathy. I could not see any obvious JVD. LUNGS: Showed decreased breath sound in the bases. CARDIAC: Heart sounds are distant. Grade 1/6 systolic ejection murmur heard at the apex. BREASTS: Not done. ABDOMEN: Without point tenderness. PELVIC/RECTAL: Not done. EXTREMITIES: Showed trace edema in the ankles. NEUROLOGIC: Grossly intact without lateralizing signs. ASSESSMENT: 1. Shortness of breath secondary to acute on chronic congestive heart failure. 2. Acute kidney injury. 3. Bradycardia. 4. Diabetes mellitus type 2. 5. Hypothyroid, on replacement, recent overzealous treatment. 6. Hypertension, essential. 7. History of coronary artery disease. 8. History of hyperlipidemia. 9. History of diabetes mellitus type 2 with hyperglycemia. PLAN: As above. KRISTINE JALLOH MD PATIENT'S NAME: SERA MUIR [facility] AGE: 86 Y [address] ROOM: [place] [address] LOCATION: [facility] ADMIT DATE: 11/24/2016 History & Physical DISCHARGE DATE: FAMILY PHYSICIAN: KRISTINE JALLOH MD ATTENDING PHYSICIAN: KRISTINE JALLOH CHEMICAL DEPENDENCY ATTENDANT/modl /[id number] D: [id number] T: [id number] HISTORY & PHYSICAL
--- NOTE | ~2016-11-24 | ECHO ---
Transthoracic Echocardiography Report (TTE) Demographics Patient Name SERA MUIR Date of Study 11/25/2016 Patient Number [id number] Visit Number [id number] Date of 1930 Room Number G6230 Gender Female Number Age 86 year(s) Referring Rea De La Fuente Geodetic Surveyor Joann Trejo RVT, Physician RDCS Physician Interpreting Efstratiou Panayotis Induction Machine Setter Physician A MD Supervising Ordering Efstratiou Donovanotis MD/MLP Physician A MD Nurse Stress Occupancy Specialist Conclusions Contractility Score Summary Normal Left Ventricular contractility was noted. Summary The estimated left ventricular ejection fraction is 50%. Moderate concentric left ventricular hypertrophy with a sigmoid septum measuring 1.70 cm. There is a mild elevation of velocity through the LVOT, but no significant obstruction. Diastolic assessment appears Grade II pseudonormal diastolic function . Mildly dilated right ventricle with normal function. The left atrium is severely dilated. The right atrium is moderately dilated. Dilated IVC with poor inspiratory collapse consistent with elevated RA pressure. Severe mitral annular calcification. Mild-moderate mitral regurgitation by color Doppler. The aortic valve is moderately sclerotic. There is mild to moderate aortic regurgitation by color Doppler. Mild-moderate tricuspid regurgitation by color Doppler. There is severe pulmonary hypertension. The pulmonary pressure (RVSP) is 71 mmHg. Mild pulmonic valve regurgitation by color Doppler. The sinuses of valsalva appear mildly dilated measuring 3.5 cm. Procedure Type of Study TTE procedure:2D Echocardiogram. Procedure Date Date: 11/25/2016 Start: 07:30 AM Study Location: Inpatient Portable Technical Quality: Adequate visualization Indications:CHF. Appropriate Use Criteria: 8 Patient Status: Routine Rhythm: Sinus bradycardia HR: 49 bpm BP: 157/70 mmHg M-Mode/2D Measurements LV Diastolic Dimension: 3.98 cm LV Systolic Dimension: 1.74 cm LV Septum Diastolic: 1.41 cm LV PW Diastolic: 1.33 cm AO Root Dimension: 2.7 cm Cardiac Output: 4.85 l/min AV Cusp Separation: 1.1 cm RV Diastolic Dimension: 2.18 cm LA volume: 73 ml LVOT: 1.9 cm RV Base: 4.42 cm LVOT VTI: 34.9 cm RV Mid: 2.73 cm LV Stroke volume: 98.9 ml TAPSE: 2.98 cm TDI-S': 14 cm/s Doppler Measurements AV Peak Velocity: 1.53 m/s MV Peak E-Wave: 1.34 m/s AV Peak Gradient: 9.36 mmHg MV Peak A-Wave: 0.97 m/s AV Mean Gradient: 6 mmHg MV E/A Ratio: 1.39 LVOT Peak Velocity: 1.23 m/s MV P1/2t: 73 msec AV P1/2t: 579 msec TR Gradient:55.65 mmHg PV Peak Velocity: 0.84 m/s Estimated RAP:8 mmHg PV Peak Gradient: 2.82 mmHg Estimated RVSP: 64 mmHg Estimated PASP: 63.65 mmHg Findings Left Ventricle Moderate concentric left ventricular hypertrophy with a sigmoid septum measuring 1.70 cm. There is a mild elevation of velocity through the LVOT, but no significant obstruction. Diastolic assessment appears Grade II pseudonormal diastolic function . Right Ventricle Mildly dilated right ventricle with normal function. Left Atrium The left atrium is severely dilated. There is no evidence of patent foramen ovale or atrial septal defect by color Doppler. Right Atrium The right atrium is moderately dilated. Dilated IVC with poor inspiratory collapse consistent with elevated RA pressure. Mitral Valve Severe mitral annular calcification. Mild-moderate mitral regurgitation by color Doppler. Aortic Valve The aortic valve is moderately sclerotic. There is mild to moderate aortic regurgitation by color Doppler. Tricuspid Valve Mild-moderate tricuspid regurgitation by color Doppler. There is severe pulmonary hypertension. The pulmonary pressure (RVSP) is 71 mmHg. Pulmonic Valve Mild pulmonic valve regurgitation by color Doppler. Pericardial Effusion No evidence of pericardial effusion. Miscellaneous The sinuses of valsalva appear mildly dilated measuring 3.5 cm. The aortic root and ascending aorta appear normal in size. Pleural Effusion No evidence of pleural effusion. Contractility Score LV regional wall motion:(0-Non visualized 1-Normal 2-Hypokinesis 3-Akinesis 4-Dyskinesis 5-Aneurysm) Signature dtt: Lizzy Ferrera dtd: 11/25/16 0730 Physician Self Edit
--- NOTE | ~2016-11-24 | CON ---
PATIENT'S NAME: SERA MUIR [facility] AGE: 86 Y [address] ROOM: [place] [address] LOCATION: GI ADMIT DATE: 11/24/2016 Consultation DISCHARGE DATE: FAMILY PHYSICIAN: KRISTINE JALLOH MD ATTENDING PHYSICIAN: KRISTINE JALLOH DATE OF CONSULTATION: 11/24/2016 REFERRING PHYSICIAN: MAGO FOSTER This is a [facility] Nephrology consultation. REASON FOR CONSULTATION: Acute kidney injury. HISTORY OF PRESENT ILLNESS: This is an 86-year-old female patient who presented to the emergency room today with increasing shortness of breath. The patient was found to be in bradycardia with heart rates 35 to 40s and acute kidney injury with a creatinine of 3.6. Baseline creatinine on August 05, 2016, was 1.1. The patient reportedly began feeling ill 7 to 10 days ago with loss of appetite, fatigue, and dyspnea on exertion. The patient reports noticeable decrease in urinary output over the past week. She does continue to take her Lasix at home despite this. "My Lasix stopped working." The patient also has a history of taking losartan for hypertension and has continued to take her medication over the past week. She currently denies any history of NSAID use, but does have a history of bladder cancer and follows with Dr. Obregon. She was last seen in August 2016. At that time, she was told that she had no recurrence of her cancer. The patient does also have a history of severe pulmonary hypertension and diastolic heart failure grade 2. She was recently seen by Cardiology with a history of SVT and was on propafenone. Due to the patient's history of acute kidney injury on chronic kidney disease, stage 2 to 3, Dr. Foster has been consulted on the patient while she is hospitalized. PAST MEDICAL HISTORY: As listed above, includin. Severe pulmonary hypertension. 2. Diastolic heart failure, grade 2. 3. Hypothyroidism. 4. Bradycardia. 5. History of ventricular tachycardia. 6. History of supraventricular arrhythmia. 7. History of bladder cancer. 8. Hypertension. PATIENT'S NAME: SERA MUIR [facility] AGE: 86 Y [address] ROOM: [place] [address] LOCATION: [facility] ADMIT DATE: 11/24/2016 Consultation DISCHARGE DATE: FAMILY PHYSICIAN: KRISTINE JALLOH MD ATTENDING PHYSICIAN: KRISTINE JALLOH 9. Diabetes type 2. ALLERGIES: 1. PEANUTS. 2. CODEINE. 3. NUTS. CURRENT HOME MEDICATIONS: 1. Losartan 50 mg p.o. b.i.d. 2. Lasix 40 mg p.o. daily. 3. Amaryl 1 mg p.o. with each meal three times a day. 4. Metformin 500 mg p.o. t.i.d. 5. Tylenol 650 mg p.o. daily p.r.n. pain. 6. Aspirin 325 mg daily. 7. Livalo 4 mg p.o. every night. 8. Levothyroxine 100 mcg p.o. daily. 9. Sotalol 40 mg p.o. b.i.d. SOCIAL HISTORY: The patient was a former cigarette smoker. She quit many years ago and smoked approximately 1 pack a day for 30 years. She denies any illicit drug use or alcohol use. FAMILY HISTORY: Reviewed and is noncontributory. There is no history of kidney disease or dialysis. PAST SURGICAL HISTORY: 1. Tonsillectomy. 2. Adenoidectomy. 3. Cholecystectomy. 4. Right hip surgery. 5. Cataract surgery. 6. Bladder cancer, status post resection. REVIEW OF SYSTEMS: GENERAL: Positive for loss of appetite. Positive for fatigue. EYES: No double vision or blurred vision. NOSE: No epistaxis or rhinorrhea. MOUTH: No gingival bleeding. Positive for dry mouth. THROAT: No sore throat, hoarseness, or cough. RESPIRATORY: Denies any wheezing. Positive for shortness of breath. Positive for BUTT. CARDIOVASCULAR: See HPI. Positive for BUTT. History of severe pulmonary hypertension. PATIENT'S NAME: SERA MUIR [facility] AGE: 86 Y [address] ROOM: [address] [address] LOCATION: [facility] ADMIT DATE: 11/24/2016 Consultation DISCHARGE DATE: FAMILY PHYSICIAN: KRISTINE JALLOH MD ATTENDING PHYSICIAN: KRISTINE JALLOH GASTROINTESTINAL: Positive loss of appetite. Denies nausea, vomiting, or diarrhea. Denies hematemesis or hematochezia. Positive weight loss. GENITOURINARY: Positive decreased urinary output, on diuretic therapy. Denies any hematuria, incontinence, or frequency. MUSCULOSKELETAL: Positive for generalized arthralgias. No new arthralgias or myalgias. NEUROLOGICAL: Denies any numbness and tingling in her upper or lower extremities. HEMATOLOGICAL: Denies any new bruising or bleeding. IMMUNOLOGICAL: Denies a history of recent infections. PSYCHIATRIC: Denies a history of depression or anxiety. PHYSICAL EXAMINATION: VITAL SIGNS: Blood pressure is 150/63, pulse is 43, respirations 18, temperature is 98.0, saturation is 97% on 1 L. GENERAL: On exam, this is an alert and oriented, very pleasant elderly white female, who appears her approximate stated age and is in mild distress secondary to shortness of breath. HEENT: Her head is normocephalic and atraumatic. Eyes: Pupils are equal, round, and reactive to light and accommodation. EOMs intact. Nose: Midline. Mouth: No gingival bleeding. Mucous membranes are dry. Dentures noted upper and lower. Throat is without lymphadenopathy or carotid bruits. Positive JVD. RESPIRATORY: Lung sounds are diminished and crackles noted in the bases bilaterally. The patient is on 1 L nasal cannula. ABDOMEN: Soft, nontender, and nondistended. Bowel sounds positive. EXTREMITIES: Show trace lower extremity edema bilaterally. No clubbing or cyanosis noted. GENITOURINARY: Deferred. NEUROLOGIC: Cranial nerves 2 through 12 are grossly intact. LABS: Troponin I is less than 0.040. WBC is 8.6, hemoglobin 10.6, hematocrit 33.7, and platelets 374. Glucose 176, BUN 67, creatinine 3.6, sodium 140, potassium 4.9, chloride 103, CO2 is 23, calcium is 8.7, albumin is 3.2. Liver function within normal limits. Phos is 5.1. Magnesium is 1.9. Hemoglobin A1c is 6.8. Chest x-ray was performed in the emergency room showing a stable nonacute chest. ASSESSMENT AND PLAN: 1. Acute kidney injury on chronic kidney disease, stage 3. This is likely secondary to cardiorenal syndrome, stage I versus alternate etiology, and likely multifactorial secondary to hypoperfusion with bradycardia. The patient does not appear overtly hypervolemic at this time. We will place the patient on strict intake and outputs as well as obtain a standing PATIENT'S NAME: SERA MUIR [facility] AGE: 86 Y [address] ROOM: [address] [place] [address] LOCATION: [facility] ADMIT DATE: 11/24/2016 Consultation DISCHARGE DATE: FAMILY PHYSICIAN: KRISTINE JALLOH MD ATTENDING PHYSICIAN: KRISTINE JALLOH daily weight. We will continue to avoid all nephrotoxic agents and continue hydration following echocardiogram results. They are currently pending with Dr. Ferrera who is taking care of the patient's cardiology needs. We would like to see maximized perfusion with heart rates greater than 60. We will check a renal ultrasound to rule out obstruction due to the history of decreased urinary outputs and history of bladder cancer. 2. Bladder cancer with recurrence. Renal ultrasound to rule out obstruction. Consider consultation with Urology if warranted. 3. Dyspnea on exertion. Concerning for anginal equivalent. We will continue to trend the cardiac enzymes and further recommendations will be forthcoming with the echocardiogram. This patient has been seen and assessed by Dr. Foster. Her care is being conducted in consultation with Dr. Foster as well as me. We will plan further recommendations as they are forthcoming. JENNIFER CORDOBA, [place], HEALTH MANAGEMENT CONSULTANT FOR [facility] MD SKYLA GOODE/barbaral /[id number] d: 11/27/162021 t: 12/04/16 1446, CONSULTATION REPORT
--- NOTE | ~2016-11-24 | ENPV ---
Vascular Lower Extremities DVT Study Procedure Demographics Patient Name SERA MUIR Date of Study 11/25/2016 Patient Number [id number] Gender Female Date of 1930 Age 86 Visit Number [id number] Height 63 Accession Number [id number] Weight 145 Referring Rea Diaz MD Physician MD Physician Danni Wang MD Physician Ordering Physician Danni Wang MD Cigarette Examiner Music Arranger Randy Alvarez, [facility] Conclusions Summary No evidence of deep vein thrombosis in bilateral lower extremities. Procedure Type of Study: Veins:Lower Extremities DVT Study, Venous Duplex Lower Extremity Bilateral. Indications for Study:Dyspnea/SOB and Pulmonary embolism. Appropriate Use Criteria:8 Patient Status:Routine. Study Location:Inpatient Portable. Technical Quality:Adequate visualization. Velocities are measured in cm/s ; Diameters are measured in cm Right Lower Extremities DVT Study Measurements Right 2D and Doppler Measurements + + + + +------+------+ + !Location !Visualized!Compressibility!Thrombosis!Signal!Reflux!Reflux ! ! ! ! ! ! ! !(sec) ! + + + + +------+------+ + !GSV Thigh !Yes !Yes !None !Phasic! ! ! + + + + +------+------+ + !Common !Yes !Yes !None !Phasic! ! ! !Femoral ! ! ! ! ! ! ! + + + + +------+------+ + !Prox !Yes !Yes !None !Phasic! ! ! !Femoral ! ! ! ! ! ! ! + + + + +------+------+ + !Mid Femoral!Yes !Yes !None !Phasic! ! ! + + + + +------+------+ + !Dist !Yes !Yes !None !Phasic! ! ! !Femoral ! ! ! ! ! ! ! + + + + +------+------+ + !Popliteal !Yes !Yes !None !Phasic! ! ! + + + + +------+------+ + !Gastroc !Yes !Yes !None ! ! ! ! + + + + +------+------+ + !PTV !Yes !Yes !None ! ! ! ! + + + + +------+------+ + !Peroneal !Yes !Yes !None ! ! ! ! + + + + +------+------+ + Left Lower Extremities DVT Study Measurements Left 2D and Doppler Measurements + + + + +------+------+ + !Location !Visualized!Compressibility!Thrombosis!Signal!Reflux!Reflux ! ! ! ! ! ! ! !(sec) ! + + + + +------+------+ + !GSV Thigh !Yes !Yes !None !Phasic! ! ! + + + + +------+------+ + !Common !Yes !Yes !None !Phasic! ! ! !Femoral ! ! ! ! ! ! ! + + + + +------+------+ + !Prox !Yes !Yes !None !Phasic! ! ! !Femoral ! ! ! ! ! ! ! + + + + +------+------+ + !Mid Femoral!Yes !Yes !None !Phasic! ! ! + + + + +------+------+ + !Dist !Yes !Yes !None !Phasic! ! ! !Femoral ! ! ! ! ! ! ! + + + + +------+------+ + !Popliteal !Yes !Yes !None !Phasic! ! ! + + + + +------+------+ + !Gastroc !Yes !Yes !None ! ! ! ! + + + + +------+------+ + !PTV !Yes !Yes !None ! ! ! ! + + + + +------+------+ + !Peroneal !Yes !Yes !None ! ! ! ! + + + + +------+------+ + Signature dtt: WILLIAMS NOGUERA dtd: 11/25/16 1542 Physician Self Edit
--- NOTE | ~2016-11-24 | CON ---
PATIENT'S NAME: SERA MUIR [facility] AGE: 86 Y [address] ROOM: [id number] [place] [address] LOCATION: [facility] ADMIT DATE: 11/24/2016 Consultation DISCHARGE DATE: FAMILY PHYSICIAN: KRISTINE JALLOH MD ATTENDING PHYSICIAN: KRISTINE JALLOH REFERRING PHYSICIAN: MAGO CANELA CHIEF COMPLAINT: Shortness of breath. REASON FOR CONSULTATION: Shortness of breath. HISTORY OF PRESENT ILLNESS: This is an 86-year-old female who was admitted on November 24, 2016, for bradycardia and also dyspnea on exertion. The patient says that she has been having this exertional dyspnea for the last 3-4 days and also has been having some productive cough of white sputum in the last few days as well, but she denies any fever, any chest pain, chills, loose stool, urinary frequency or urgency, leg edema, orthopnea, paroxysmal nocturnal dyspnea, and she says that she has been losing some weight, but she cannot tell me how much. The patient has a history of ventricular tachycardia and the patient was on propafenone for supraventricular arrhythmia and this was stopped a few months ago. She was also on amiodarone due to her history of ventricular tachycardia, but this was stopped roughly 2 days ago according to the patient. The patient was admitted for worsening exertional dyspnea at this time. A consultation was requested for hospitalist team due to overnight worsening shortness of breath, requiring higher oxygen supplementation from nasal cannula to non-rebreather. During the episode of the worsening dyspnea, the patient also complained of some mild chest discomfort in the substernal area without radiation about 2/10 in intensity. No fever, no chills, but does complain of some whitish phlegm, and productive cough over the last few days. REVIEW OF SYSTEMS: As mentioned in the history of present illness. All other systems were reviewed and were negative except those mentioned in the history of present illness. PAST MEDICAL HISTORY: 1. History of ventricular tachycardia. 2. History of supraventricular arrhythmia. 3. History of bladder cancer. 4. History of chronic diastolic congestive heart failure and the most recent transthoracic echo was done on June 2016. At that time, it showed EF of more than 75% with grade 2 diastolic dysfunction and severe pulmonary PATIENT'S NAME: EICKMEIER, SERA R [facility] AGE: 86 Y [address] ROOM: [address] [address] LOCATION: GICU ADMIT DATE: 11/24/2016 Consultation DISCHARGE DATE: FAMILY PHYSICIAN: KRISTINE JALLOH MD ATTENDING PHYSICIAN: KRISTINE JALLOH hypertension with pressure of 59.62 mmHg. The aortic valve is moderately sclerotic with [id number]-ry-dayeviol tricuspid regurgitation, moderate aortic regurgitation, moderate mitral regurgitation, moderate mitral annular calcification, and moderate left ventricular hypertrophy. 5. Hypertension. 6. Diabetes type 2. 7. Hypothyroidism. ALLERGIES: PEANUT, CODEINE, AND NUTS. HOME MEDICATIONS: 1. Losartan 50 mg p.o. b.i.d. 2. Lasix 40 mg p.o. daily. 3. Amaryl 1 mg p.o. with each meal 3 times a day. 4. Metformin 500 mg p.o. t.i.d. 5. Tylenol 650 mg p.o. daily p.r.n. for pain. 6. Aspirin 325 mg p.o. daily. 7. Livalo 4 mg p.o. every night. 8. Levothyroxine 100 mcg p.o. daily. SOCIAL HISTORY: The patient was a former cigarette smoker. She quit many years ago and she smoked about 1 pack per day for roughly 30 years. She denies any alcohol or any illegal drug use. FAMILY HISTORY: Mother had some kind of heart problem, but she could not remember all the details and her father had aplastic anemia. PAST SURGICAL HISTORY: 1. Tonsillectomy. 2. Adenoidectomy. 3. Cholecystectomy. 4. Right hip surgery. 5. Cataract surgery. 6. Bladder cancer, status post resection. PHYSICAL EXAMINATION: VITAL SIGNS: At the time of my evaluation, temperature was 97.5, heart rate was 47, respirations were 23 blood pressure was 143/63, saturation was 97% on BiPAP, 40% FiO2, and 12/8 setting. GENERAL APPEARANCE: Alert and oriented x3. Currently, in mild respiratory distress. HEENT: Pupils are equally round and reactive to light. Extraocular muscles PATIENT'S NAME: SERA MUIR [facility] AGE: 86 Y [address] ROOM: [address] [address] LOCATION: [facility] ADMIT DATE: 11/24/2016 Consultation DISCHARGE DATE: FAMILY PHYSICIAN: KRISTINE JALLOH MD ATTENDING PHYSICIAN: KRISTINE JALLOH intact. Anicteric sclerae. Nasal turbinates are normal bilaterally. Moist oral mucosa. NECK: No obvious JVD. CARDIOVASCULAR: Slow rate and regular rhythm. Normal S1, S2. I could not appreciate obvious rubs, gallops, or murmur. RESPIRATORY: Rales and rhonchi. Bibasilar bases and the right upper lung and right mid lung. No wheezing, no crackles. ABDOMEN: Soft, nontender, nondistended, bowel sounds are present, no mass. EXTREMITIES: Very trace pitting edema bilaterally in bilateral lower extremities. SKIN: No ulcer, no rash, no cyanosis. NEUROLOGICAL: Grossly nonfocal. LABORATORY DATA: Arterial blood gas performed on non-rebreather showed pH of 7.29,pCO2 61, PO2 58, bicarbonate 29.3. Saturation 86%. Lactic acid 1.2. Troponin 0.048. CPK 37, proBNP 12,247. White blood cells 15.7, hemoglobin 11.9, hematocrit 37.8, platelets 418. Glucose 262. BUN 69, creatinine 3.2. Sodium 139, potassium 4.3, chloride 102, CO2 26, calcium 8.9. Total protein 6.6, albumin 3.0, AST 24, ALT 31, alkaline phosphatase 106, total bilirubin 0.3, phosphorus 5.1. Magnesium 1.9. Hemoglobin A1c is 6.8. INR 1.03, PTT 27. GFR 12. CK-MB 1.0. TSH 0.671. Procalcitonin 0.36. D-dimer is 0.82. IMAGING STUDIES: Chest x-ray on 11/24/2016 at 3:10 p.m. was read as stable, nonacute chest with a stable cardiomegaly without heart failure or pneumonia. Repeat chest x-ray, the official reading is pending. This was done at 1:20 a.m. of November 25, 2016. Based on my review compared to the previous one, it seems like infiltrate or vascular congestion on the right side of the lung, both upper, lower, and the middle level of the lung. Please follow up with the official reading in the morning. EKG: The first one on admission on November 24, 2016, at 2:50 p.m. shows sinus bradycardia, heart rate of 40 beats per minutes with a first-degree AV block, MA over 260 milliseconds, QRS of 160 milliseconds, and the QTc of 452 milliseconds. There is evidence of left axis deviation, with T inversion in the inferior leads. A repeat EKG on November 25, 2016, at 1:16 a.m. shows sinus bradycardia, heart rate of 56, MA of 177 milliseconds, QRS 166 milliseconds, QTc was 504 milliseconds, sinus bradycardia; heart rate of 56 beats per minutes with left axis deviation; left axis deviation, now with complete right bundle-branch block pattern, still with T inversion in inferior leads, which is chronic. PATIENT'S NAME: SERA MUIR [facility] AGE: 86 Y [address] ROOM: [place] [address] LOCATION: [facility] ADMIT DATE: 11/24/2016 Consultation DISCHARGE DATE: FAMILY PHYSICIAN: KRISTINE JALLOH MD ATTENDING PHYSICIAN: KRISTINE JALLOH ASSESSMENT AND PLAN: 1. Acute hypoxemic and hypercapnic respiratory failure: She has history of chronic diastolic heart failure, currently on physical examination, the patient does not appear to be grossly volume overload. Due to her elevated proBNP and a history of chronic diastolic heart failure, we will get an echo in the morning. Currently, Nephrology is also managing the patient for her acute kidney injury and due to the concern for cardiorenal syndrome, the patient will continue on diuretics, will follow up with Nephrology. I will put her on BiPAP given that she has evidence of respiratory acidosis with CO2 retention on ABG. Due to the concern for infiltrate on the chest x-ray and also with a history of a few days of productive cough or whitish sputum, I will cover her with p.o. Levaquin for now. In addition to the p.o. Levaquin, I will also order RT for RSS. She is now wheezing. No history of prior COPD. Therefore, I am not going to give her prednisone for now given that prednisone could cause fluid retention. She does have evidence of elevation of D-dimer, but she also had evidence of acute kidney injury. EKG does not show the typical pattern of the S1, Q3, T3, but does have evidence of right bundle- branch block. We will follow up with the troponin and also with proBNP right now and her kidney function prevents us from getting a CT, PE, a CT chest with contrast. She will need a ventilation perfusion scan and also a duplex venous ultrasound of the bilateral lower extremities. TTE has been ordered for early AM. I also explained the possibility of starting patient on heparin drip if raises concern for PE or ACS later on. I explained risks and benefits of using iv heparin drip and patient was very hesitant and refused heparin drip due to its side effect with bleeding as a potential complication although likely is low in this patient who was not on NOAc or coumadin except on aspirin at home but bleeding is still a potential complication of using iv heparin drip. Currently, the patient is resting comfortably with BiPAP and states that the dyspnea has already improved a lot. We will monitor urine output given that the patient already got Lasix before I was notified for the consultation. She has put out about 480 mL. We will get ABG in 4 hours as the patient is on BiPAP. Once again, the patient is feeling much more comfortable right now. Her chest pain also already went away totally. I will cycle cardiac enzymes for another 3 sets due to her transient chest pain that already went away once her dyspnea on exertion on BiPAP helped her to improve. We will send the sputum for culture Gram stain. Further plan will depend on clinical course. Please follow up with Cardiology and also Nephrology. 2. Regarding her acute kidney injury: Follow up with Nephrology. The patient will have complete abdominal ultrasound in the morning. 3. Regarding her sinus bradycardia: No evidence of heart block on EKG. She just stopped her amiodarone 2 days ago. This could be from the medication related or due to history of ventral tachycardia and also supraventricular arrhythmia, there could also be a concern about sick sinus syndrome. Therefore, we will defer care to Cardiology for further evaluation tomorrow. Echo is pending to be done tomorrow. I will put the patient on pacing pads and also we will use IV atropine if she develops symptomatic bradycardia and if she also has hypertension, we will start her on the dopamine drip. 4. Regarding her hypertension: Currently, she is on diuretics per PATIENT'S NAME: SERA MUIR [facility] AGE: 86 Y [address] ROOM: [place] [id number] LOCATION: [facility] ADMIT DATE: 11/24/2016 Consultation DISCHARGE DATE: FAMILY PHYSICIAN: KRISTINE JALLOH MD ATTENDING PHYSICIAN: KRISTINE JALLOH Nephrology. Continue those medications per Nephrology. Follow up with a nephrology. Avoid beta-sissy due to her sinus bradycardia at the moment. 5. Regarding her diabetes type 2: We will put her on subcutaneous NovoLog every 4 hours, mild dose and titrate as needed. We will hold while avoiding metformin due to her renal failure to prevent lactic acidosis. 6. Regarding her hypothyroidism: We will check a TSH. Continue current home dose of levothyroxine and titrate as needed. 7. Deep vein thrombosis prophylaxis: The patient will be getting a heparin subcu 3 times a day. 8. Time spent in care on the date of admission for the consultation, 50 minutes were spent on chart review. The remainder of the time was spent on interview and then physical examination, also on counseling. The consulting includes going over the plan of care with the patient and addressing all the questions the patient had and also going over the plan of care with the patient. I answered all her questions to her satisfaction. Further plan will depend on the pending labs and also on the clinical course. CINTHYA BRAGG MD CC/modl /[id number] d: t: 11/25/16 2249, CONSULTATION REPORT
--- NOTE | ~2016-11-24 | PN ---
PATIENT'S NAME: LISA MUIR [facility] AGE: 86 Y [address] ROOM: [place] [address] LOCATION: GICU ADMIT DATE: 11/24/2016 Progress Notes DISCHARGE DATE: FAMILY PHYSICIAN: KRISTINE JALLOH MD ATTENDING PHYSICIAN: KRISTINE JALLOH DATE OF SERVICE: 11/25/2016 CLINICAL UPDATE: Lisa Muir in the middle of the night on 11/25/2016, had increasing requirements for O2. On admission, she was admitted with a diagnosis of probable congestive heart failure, and because I do not have intensive care unit privileges, after the patient's significant change in status with increasing O2 requirements, I requested that the nurses call Dr. Ferrera, custom applicator, who had seen the patient earlier, and that if need be, the patient would need to have a hospitalist from [facility] follow her in ICU as I do not have ICU privileges. PHYSICAL EXAMINATION: GENERAL: When I see the patient today, she is alert, on O2 per mask, and sats are normal. HEENT: Otherwise benign. NECK: Unremarkable. LUNGS: Decreased breath sounds throughout. CARDIAC: Heart sounds are distant. Regular rhythm. ABDOMEN: Benign. EXTREMITIES: Unremarkable. ASSESSMENT: 1. Acute hypoxemia and respiratory failure, probably secondary to acute pneumonia per CAT scan (CAT scan shows no pulmonary embolus, congestive heart failure). 2. Diabetes mellitus, type 2. 3. Hypothyroidism, on replacement. 4. Known coronary artery disease. 5. Congestive heart failure, acute on chronic. 6. Acute kidney injury. PLAN: As per Cardiology and Renal. KRISTINE JALLOH MD PATIENT'S NAME: LISA MUIR [facility] AGE: 86 Y [address] ROOM: [place] [address] LOCATION: GICU ADMIT DATE: 11/24/2016 Progress Notes DISCHARGE DATE: FAMILY PHYSICIAN: KRISTINE JALLOH MD ATTENDING PHYSICIAN: KRISTINE JALLOH COOLING ROOM ATTENDANT/modl /[id number] d: 11/25/162013 t: 12/04/16 0759, PROGRESS NOTES
--- NOTE | ~2016-11-24 | CON ---
PATIENT'S NAME: SERA MUIR [facility] AGE: 86 Y [address] ROOM: [place] [address] LOCATION: GICU ADMIT DATE: 11/24/2016 Consultation DISCHARGE DATE: FAMILY PHYSICIAN: KIRSTINE JALLOH MD ATTENDING PHYSICIAN: KRISTINE JALLOH DATE OF CONSULTATION: 11/26/2016 REFERRING PHYSICIAN: MAGO CANELA REASON FOR CONSULTATION: For consideration of bronchoscopy for extensive right-sided infiltrate on CT chest. HISTORY OF PRESENT ILLNESS: An 86-year-old lady with extensive medical history of diastolic heart failure, acute kidney injury, history of ventricular tachycardia, supraventricular arrhythmias, on amiodarone admitted with acute hypoxic respiratory failure on 11/24/2016, currently being managed with high-flow nasal cannula, high-flow oxygen, and BiPAP at night. The patient came to the ED day before yesterday with excessive shortness of breath and cough, mostly dry, denied any chest pain at that time, she was found to have elevated troponins and has been having chest pain since yesterday, so she was started on heparin drip yesterday morning. On bedside examination, she was found to be on high-flow nasal cannula at FiO2 of 90% and flow 40 L/minute, saturating around 80% to 90%. She denies any excessive chest pain at this moment. She complains of mostly dry cough. Denied any fever or chills. On repeated questioning, she denied any choking in the recent past while eating or drinking. MEDICATIONS: As per MAR. ALLERGIES: PER MAR. SOCIAL HISTORY: She stopped smoking almost 30 years pack, but smoked for 40 years almost a pack per day. 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 FAMILY HISTORY: Noncontributory. MEDICAL HISTORY: 1. History of ventricular tachycardia. 2. Acute kidney. 3. Hypertension. PATIENT'S NAME: SERA MUIR [facility] AGE: 86 Y [address] ROOM: [place] [address] LOCATION: CU ADMIT DATE: 11/24/2016 Consultation DISCHARGE DATE: FAMILY PHYSICIAN: KRISTINE JALLOH MD ATTENDING PHYSICIAN: KRISTINE JALLOH 4. Diabetes. 5. Dyslipidemia. 6. History of bladder carcinoma as per medical. PAST SURGICAL HISTORY: Tonsillectomy, adenoidectomy, cholecystectomy, right hip replacement, cataract surgery, bladder cancer removed through cystoscopy twice. The patient's code status is DNR/DNI. REVIEW OF SYSTEM: RESPIRATORY: Complains of dry cough, mostly productive of clear sputum. CARDIAC: Complains of shortness of breath and also has intermittent chest pain. A 10-point review of system was performed and negative mentioned as above. PHYSICAL EXAMINATION: VITAL SIGNS: Temperature 96.9, pulse 54 per minute, respiration 20 per minute, blood pressure 159/70, saturating around 87% to 88% on high-flow nasal cannula with FiO2 of 90%, inflow of 40 L/minute. GENERAL: In no acute distress on high-flow nasal cannula. HEAD AND NECK: Normal conjunctivae. No lymphadenopathy. CHEST: Reduced air entry on the right, bibasilar creps. CARDIOVASCULAR: S1, S2, bradycardic. ABDOMEN: Soft, nontender, nondistended. EXTREMITIES: No edema. LABORATORY DATA: ABG on admission on 11/24/2016 showed pH of 7.43, pCO2 of 43, PO2 of 76. ABG on 11/25/2016 showed pH of 7.29, pCO2 of 61, PO2 of 58. This morning's ABG showed pH of 7.42, pCO2 of 52, PO2 of 52. CMP: Sodium 140, potassium 3.7, chloride 100, bicarb 29, BUN 68, creatinine 3.0. CBC showed WBC of 14.1, hemoglobin 11, hematocrit 34, platelets 373. Procalcitonin level was 0.[address] chest report: It showed. Right-sided diffuse infiltrate both in upper and lower lobe, bilateral pleural effusion more on the right than the left, no significant lymphadenopathy could be appreciated, but this is a noncontrast study. ASSESSMENT AND PLAN: 1. Acute hypoxic respiratory failure, probably secondary to pneumonia versus PATIENT'S NAME: SERA MUIR [facility] AGE: 86 Y [address] ROOM: [address] [address] LOCATION: [facility] ADMIT DATE: 11/24/2016 Consultation DISCHARGE DATE: FAMILY PHYSICIAN: KRISTINE JALLOH MD ATTENDING PHYSICIAN: KRISTINE JALLOH non-ST elevation myocardial infarction versus heart failure. 2. Community-acquired pneumonia versus aspiration pneumonia. 3. Diastolic heart failure. 4. Acute kidney injury. 5. Non-ST elevation myocardial infarction. 6. Continue high-flow nasal cannula and BiPAP as tolerated. Since the patient shows evidence of hypercapnia, we will encourage using of BiPAP more. 7. Continue meropenem and Levaquin. 8. Send sputum culture and Gram stain. 9. Please send mycoplasma serology, Legionella, and streptococcal antigen. Review of CT chest showed right-sided infiltrate in both upper and lower lobes, which could be secondary to community-acquired pneumonia versus atypical pneumonia versus aspiration, although on repeated asking the patient denied any history of choking in the recent past. We will recommend to do a formal swallow study. The patient is not a candidate for any bronchoscopic intervention considering her respiratory status which places her at high risk for ending up on the ventilators postprocedure. The patient's code status is DNI/DNR. We will manage conservatively with IV antibiotics for now. Provided her clinical status improves and she gets discharged, she will need a followup CT scan of the chest in 4 to 6 weeks and if renal function permits with contrast to better evaluate for lymphadenopathy. Thank you for consulting Pulmonary. We will continue to follow along with you. MD ARMANDO DUVALL/blaire /[id number] d: 11/26/16 1457 t: 11/28/16 1349, CONSULTATION REPORT
[~2016-11-24 14:39] MED LIST changes: -BETAPACE (GENER80 MG PO; -LEVOTHROID (S100 MCG PO; -LIVALO4 MG PO
[2016-11-24 15:03] LABS: BASOPHIL # 0.1 K/uL (0.0-0.2); BASOPHIL % 0.9 %; EOSINOPHIL # 0.2 K/uL (0.0-0.5); HEMATOCRIT 33.7 % (30.0-46.0); HEMOGLOBIN 10.6 g/dL (10.0-15.0); IMMATURE GRANULOCYTE % 0.3 %; LYMPHOCYTE # 1.5 K/uL (0.8-4.0); MCH 27.2 pg (27.0-34.0); MCHC 31.5 gm/dL (32.0-36.5); MCV 86.4 fl (83.0-98.0); MONOCYTE # 0.7 K/uL (0.0-1.0); MONOCYTE % 8.4 %; MPV 9.8 fl (9.4-12.4); NEUTROPHIL # (ANC) 6.1 K/uL (1.8-7.8); NEUTROPHIL % 71.4 %; NRBC % 0 /100WBC (0-0.00); PLATELET COUNT 374 K/uL (150-450); RDW-CV 15.1 % (11.9-14.6); WBC 8.6 K/uL (4.0-11.0)
[2016-11-24 15:11] LABS: INR - (THERAPEUTIC) 1.03 (0.92-1.07); PROTIME 10.8 SECONDS (9.8-11.4); PTT 27 SECONDS (25-32)
[2016-11-24 15:25] LABS: ALBUMIN 3.2 gm/dL (3.5-5.0); ALK PHOS 106 IU/L (33-138); ALT 31 IU/L (12-78); ANION GAP 18.9 (10.0-19.0); AST 24 IU/L (10-40); CALCIUM 8.7 mg/dL (8.5-10.5); CHLORIDE 103 mMol/L (96-110); CO2 23 mMol/L (22-32); CPK 43 IU/L (21-215); CREATININE 3.6 mg/dL (0.5-1.1); POTASSIUM 4.9 mMol/L (3.7-5.1); SODIUM 140 mMol/L (135-145); TOTAL BILIRUBIN 0.3 mg/dL (0.0-1.5); TOTAL PROTEIN 6.6 g/dL (6.0-8.4)
[2016-11-24 15:26] LABS: BLOOD UREA NITROGEN 67 mg/dL (6-24)
[2016-11-24 17:00] LABS: BICARBONATE 28.5 mmol/L (18.0-23.0); PCO2 43 mmHg (35-45); PO2 76 mmHg (80-90)
--- NOTE | 2016-11-24 18:42 | NUR ---
1750: ADMITTED TO ROOM FROM ER PER WHEEL CHAIR WITH COMPLAINTS OF BEING SHORT OF BREATH AND TIRED. PT STATES SHE WENT TO SEE DR JALLOH ON FRIDAY WITH THE SAME COMPLAINTS AND THAT HE CONSULTED WITH DR MCKEON AND THAT THEY CHANGED HER MEDICATIONS AND HAD HER STOP TAKING HER AMIODARONE. PATIENT STATES SHE WAS STILL FEELING SHORT OF BREATH AND WEAK. MONITOR SHOWS SUSANNAH LOW 40, THEN SHE HAS SOME SVT WITH RATES 120, THEN SHE HAS A PAUSE AND THEN RATES RETURN TO 40. ALERT AND ORIENTED X3. DR JALLOH IN TO SEE PT. PATIENT ORIENTED TO ROOM, SURROUNDINGS AND PLAN OF CARE. PATIENT'S CENTER DIRECTOR LEAD TEACHER (POA) NOTIFIED OF HER ADMISSION, PER HER REQUEST. PATIENT HAS HER PURSE IN THE ROOM WITH A CELL PHONE IN IT AND $39 RASHEED, I ADVISED HER TO SEND THIS HOME WITH HER POA AND SHE REQUESTS TO KEEP IT HERE WITH HER.
[2016-11-24] MEDS ORDERED: LIVALO4 MG PO (19:55)
[2016-11-24] MEDS ORDERED: LEVOTHROID (S100 MCG PO (19:56)
[2016-11-25 01:18] LABS: BICARBONATE 29.3 mmol/L (18.0-23.0)
[2016-11-25 01:20] LABS: PCO2 61 mmHg (35-45); PO2 58 mmHg (80-90)
[2016-11-25 02:10] LABS: BASOPHIL # 0.1 K/uL (0.0-0.2); BASOPHIL % 0.6 %; EOSINOPHIL # 0.2 K/uL (0.0-0.5); EOSINOPHIL % 1.1 %; HEMATOCRIT 37.8 % (30.0-46.0); HEMOGLOBIN 11.9 g/dL (10.0-15.0); IMMATURE GRANULOCYTE # 0.1 K/uL (0.0-0.3); IMMATURE GRANULOCYTE % 0.8 %; LYMPHOCYTE # 1.4 K/uL (0.8-4.0); MCH 27.2 pg (27.0-34.0); MCHC 31.5 gm/dL (32.0-36.5); MCV 86.3 fl (83.0-98.0); MONOCYTE % 6.2 %; MPV 9.9 fl (9.4-12.4); NEUTROPHIL % 82.3 %; NRBC % 0 /100WBC (0-0.00); PLATELET COUNT 418 K/uL (150-450); RBC 4.38 M/uL (3.00-5.00); WBC 15.7 K/uL (4.0-11.0)
[2016-11-25 02:23] LABS: ANION GAP 16.6 (10.0-19.0); CALCIUM 9.1 mg/dL (8.5-10.5); CREATININE 3.2 mg/dL (0.5-1.1); MAGNESIUM 1.9 mg/dL (1.8-2.6); POTASSIUM 4.6 mMol/L (3.7-5.1)
[2016-11-25 05:00] LABS: ANION GAP 15.3 (10.0-19.0); CALCIUM 8.9 mg/dL (8.5-10.5); CREATININE 3.2 mg/dL (0.5-1.1); PHOSPHORUS 5.1 mg/dL (2.5-4.9); POTASSIUM 4.3 mMol/L (3.7-5.1)
--- NOTE | 2016-11-25 05:30 | NUR ---
Significant Event: A/O, HR aiden-40s with occasional runs of SVT/afib, SBP 130-170s, 1 L O2 increased to 6L at 2300, non rebreather unable to keep sats >low 80%s, IV lasix given, very difficult for patient to catch breath and chest pressure , BULKER called at 0100, bipap initiated at 100%fiO2, weaned to 65% upon transfer to ICU at 0500, npo for renal u/s today, echo today Follow up: continue to monitor respiratory status
[2016-11-25 08:19] LABS: HEMATOCRIT 36.1 % (30.0-46.0); HEMOGLOBIN 11.1 g/dL (10.0-15.0); MCH 26.8 pg (27.0-34.0); MCHC 30.7 gm/dL (32.0-36.5); MCV 87.2 fl (83.0-98.0); MPV 9.8 fl (9.4-12.4); RBC 4.14 M/uL (3.00-5.00); RDW-CV 14.9 % (11.9-14.6); WBC 13.1 K/uL (4.0-11.0)
[2016-11-25 08:23] LABS: LACTATE 1.1 mEq/L (0.50-1.60); PCO2 49 mmHg (35-45); PO2 56 mmHg (80-90)
[2016-11-25 08:35] LABS: ANION GAP 13.3 (10.0-19.0); CREATININE 3.4 mg/dL (0.5-1.1); POTASSIUM 4.3 mMol/L (3.7-5.1)
[2016-11-25 13:32] LABS: INR - (THERAPEUTIC) 1.2 (0.92-1.07); PROTIME 12.6 SECONDS (9.8-11.4)
--- NOTE | 2016-11-25 17:49 | NUR ---
Significant Event:PT IS AAOX3. NO NUMBNESS OR TINGLING. LUNG SOUNDS ON R) SIDE HAVE BEEN COARSE WITH SOME RALES NOTED. L) SIDE CLEAR AND DIMINISHED. ON 10L SIMPLE MASK WHEN AWAKE AND ON BIPAP WHEN SLEEPING. HEPARIN GTT STARTED. NEXT PTTHP 2144. NEXT CARDIAC ENZYMES AT 2100 ARE TO BE CALLED TO DR CASTELLANOS. ONLY HAD MILD CP THIS AM NONE SINCE. CASTRO DRAINING YELLOW URINE. USED BSC DUE TO SOB. HR 40-50'S. CARDIAC DIET. NEED SPUTUM CULTURE Follow up:MONITOR ENZYMES, BP AND PULSE, OXYGEN LEVELS
--- NOTE | 2016-11-25 20:50 | NUR ---
Went in to patient's room at 1954 to assessment patient. Patient requested to have her bipap taken off. I told her that I would speak to respiratory and maybe she could tolerate a small break from it. She stated she wanted it off and not placed back on. I educated on the patient on the reason she is on the bipap and she states she doesn't care if she becomes uncomfortable or in distress. States, "I'm 86 years old. Dying is inevitable. I'm not going to live forever. This isn't comfortable for me. I'm claustraphobic and just want to be comfortable." Discussed patient wishes again and she reiterates that if she were to lose her airway she does not have to be on a ventilator and she does not want CPR if she were to code. States, "I wear this [DNR bracelet] for a reason." Also states, "I don't have any family-I have nothing holding me back." Gets tearful when she talks about how her "problem" son visited today. States she talks to her granddaughter some. Called [facility] and asked if they could take the bipap off. Call placed to Dr. Clement and received new orders for bipap PRN and start hi micky NC and see if this is more comfortable for patient and to give 3 mg of IVP Morphine to also help with anxiety. Discussed new orders with patient and she agrees to this. States she does not want any extraordinary measures taken to keeping her alive--states she just wants to be better or wants to . States, "I'm a realistic person. I don't want to live forever and I can't believe some of the things people do to stay alive." Placed on hi micky NC and patient states this is more comfortable and thanked staff members. Alert and oriented x 3 and has denied pain so far this shift. Talkative and pleasant at this time.
[2016-11-26 01:10] LABS: BICARBONATE 33.7 mmol/L (18.0-23.0); PCO2 52 mmHg (35-45); PO2 52 mmHg (80-90)
[2016-11-26 02:01] LABS: BASOPHIL % 0.3 %; HEMATOCRIT 34.7 % (30.0-46.0); HEMOGLOBIN 11.1 g/dL (10.0-15.0); IMMATURE GRANULOCYTE # 0.1 K/uL (0.0-0.3); IMMATURE GRANULOCYTE % 0.6 %; LYMPHOCYTE # 1.6 K/uL (0.8-4.0); LYMPHOCYTE % 11.5 %; MCH 27.3 pg (27.0-34.0); MCV 85.5 fl (83.0-98.0); MONOCYTE # 1.2 K/uL (0.0-1.0); MONOCYTE % 8.6 %; MPV 9.7 fl (9.4-12.4); NEUTROPHIL # (ANC) 11.2 K/uL (1.8-7.8); NRBC % 0 /100WBC (0-0.00); PLATELET COUNT 373 K/uL (150-450); RBC 4.06 M/uL (3.00-5.00); RDW-CV 14.9 % (11.9-14.6); WBC 14.1 K/uL (4.0-11.0)
[2016-11-26 02:17] LABS: ALBUMIN 2.8 gm/dL (3.5-5.0); ANION GAP 14.7 (10.0-19.0); CALCIUM 8.7 mg/dL (8.5-10.5); POTASSIUM 3.7 mMol/L (3.7-5.1); TOTAL PROTEIN 6.8 g/dL (6.0-8.4)
[2016-11-26 02:19] LABS: TOTAL BILIRUBIN 0.5 mg/dL (0.0-1.5)
--- NOTE | 2016-11-26 06:18 | NUR ---
Significant Event: Patient started the shift alert and oriented x 3, talkative and pleasant. Denied pain, numbness, or tingling. Refused to wear bipap--see nurse's note on conversation with patient. Moves spontaneously and follows commands. Equal strengths. Pulses palpable. PERRLA. Bradycardic. Originally hypotensive and later has become hypertensive. Did start to c/o feeling like there was "a small elephant" on her chest and Nitro drip was started. Cardiac enzymes have continued to trend up and EKG was abnormal with significant changes. Lungs coarse, right side worse. Changed to hi micky NC-FiO2 around 95%. Afebrile. Onofre intact draining yellow urine--output has started to decrease. Bowel sounds active. No BM this shift. Zofran given for nausea x 1 this shift. Cardiac diet but no intake really this shift. Swabbed mouth--mouth is dry. PIV to left hand/wrist infusing heparin and nitro. Nitro is at 15 mcg/min and heparin is at 800 units/hr. Next PTTHP is at 1100. Around 0100 patient's monitor beeped to alert of hypotension. Rechcked BP and patient was hypertensive and HR increased into the 50s. Patient was SOB and restless. Staring off and not talking much. Disoriented to time and place. Called Dr. Clement and received orders for ABG. Patient continued to refuse bipap. Did return to oriented x 3 but very drowsy. Did labs and added Meropenum. Patient has stated several times she just wants to be comfortable and be able to pass away. Follow up: nitro drip, comfort cares?, heparin gtt, monitor respiratory status
--- NOTE | 2016-11-26 12:30 | NUR ---
Introduced self/role to patient. She lives alone here in [place]. Has no family around here, POA is her state's attorney - Delbert Everett. She knows she can't go home from here. Before this occured she was starting to think about [facility]. She has a male friend at [facility], not sure she wants to be in the same building but will check with his family. Otherwise she would like [facility] - was there around 2005 following a hip surgery. Then would be Mother Chelsy. Last [facility] due to distance to get there, has a lot of elderly friends who still drive. She will seriously think about [employer] and selling her home now. She stated Dr. Lucia told her she would be here until the end of the week. Added my name to her marker board, will continue to follow.
[2016-11-26] MEDS ORDERED: BETAPACE (GENER80 MG PO ×2 (15:18→15:29)
--- NOTE | 2016-11-26 20:36 | NUR ---
Significant Event:A/OX3.FOLLOWS COMMANDS. SOB AT TIMES,BUT REQUIRES 90% HI FLOW, WHEN OFF SaO2 DROPS TO 50s. HEPARIN GTT PROTOCOL AT 800 units/HR. NITRO GTT FOR CHEST PAIN AND KEEP SBP < 150 AT 15 MCG/MIN. 30MEQ KCL IV. LASIX IV X 2. TREATING PNEUMONIA WITH ANITIBIOTICS. VSS. REPORTS NO PAIN. REFUSED REPO MULTIPLE TIMES BUT DOES SELF REPO SOMEWHAT.R)FA SL, L)WRIST INFUSING. MATTHEW FOR STRICT I/O. CARDIAC DIET. Q4 HOUR ACCUCHECKS WITH MILD SSI. Follow up:MONITOR.
--- NOTE | 2016-11-27 03:45 | NUR ---
Significant Event:Patient alert and ox3. Bedrest at this time. No c/o pain, states no chest pain. Nitro at 5mcg/min, titrate to keep sbp less than 150 and for chest pain comfort. Heparin at 800units/hr. On Hiflow NC with sats in the mid to high 90's. PIV x2, right forearm (which is somewhat tender) and left wrist. Did have episode of anxiety this shift for about an hour at approximately 0115, stated she just felt panicky. Was able to doze off after awhile. Onofre patent with yellow urine. Follow up:Nitro/hep gtts. Monitor for SOB/chest pain.
[2016-11-27 06:05] LABS: ALBUMIN 2.5 gm/dL (3.5-5.0); ANION GAP 12.5 (10.0-19.0); CALCIUM 8.4 mg/dL (8.5-10.5); CREATININE 2.8 mg/dL (0.5-1.1); MAGNESIUM 1.9 mg/dL (1.8-2.6); PHOSPHORUS 3.2 mg/dL (2.5-4.9); POTASSIUM 3.5 mMol/L (3.7-5.1)
[2016-11-27 16:15] LABS: ALBUMIN 2.6 gm/dL (3.5-5.0); ANION GAP 11.4 (10.0-19.0); CALCIUM 8.5 mg/dL (8.5-10.5); CREATININE 2.8 mg/dL (0.5-1.1); PHOSPHORUS 2.7 mg/dL (2.5-4.9); POTASSIUM 4.4 mMol/L (3.7-5.1)
--- NOTE | 2016-11-27 16:50 | NUR ---
Significant Event: Patient is A&O x3. Follows commands. Equal strength in all extremities. Denies numbness & tingling. Does have generalized weakness. VSS except for HR in the 40's & 50's. Was given IV Lasix x2 today. D/C'd Nitro gtt today @ 0737 and placed a Nitro patch to her R) shoulder blade. Complained of pain to her R) hip today which is chronic & I gave her Tylenol @ 1503 with relief noted. Onofre draining yellow urine & is in for strict I&O. Was able to wean off high flow NC to 6L O2 by NC. She does drop her sats with exertion so monitor. Up in chair today with 2 assist & gait belt. Is on a Heparin gtt at 800 units/hr. Next PTTHP @ 0400. IV to R) FA SL & L) wrist infusing. Q4H accuchecks. Q1H VS. Cooperative with cares. Follow up: Monitor sats & VS.
--- NOTE | 2016-11-28 04:48 | NUR ---
Significant Event:Patient alert and ox3. Up with heavy 2 assist/pivot. On 6L o2 per NC. Lung sounds slighly coarse to the lower lobes. SOB at times. Follows commands. PIV x2 to right forearm and left wrist. Rt side SL, left is infusing Heparin at 800units/hr. C/o pain to her right hip-states old hip repair done and hurts at times. Tylenol given x1 at 2253. Did get restless early this am and did give Ativan 0.5mg x1 at 0107. She was able to sleep for a while after. Onofre patent with yellow urine. No c/o chest pain. Continues on IV meropenum. Bradycardia with HR in the high 40's to 50's. accuchecks q4hrs. Follow up:Strict I/o.
[2016-11-28 05:20] LABS: BASOPHIL % 0.4 %; EOSINOPHIL # 0.2 K/uL (0.0-0.5); EOSINOPHIL % 1.9 %; HEMATOCRIT 32.3 % (30.0-46.0); HEMOGLOBIN 10.2 g/dL (10.0-15.0); IMMATURE GRANULOCYTE % 0.4 %; LYMPHOCYTE # 1.2 K/uL (0.8-4.0); MCH 26.9 pg (27.0-34.0); MCHC 31.6 gm/dL (32.0-36.5); MCV 85.2 fl (83.0-98.0); MONOCYTE # 1.1 K/uL (0.0-1.0); MONOCYTE % 10.2 %; MPV 9.7 fl (9.4-12.4); NEUTROPHIL % 76.1 %; NRBC % 0 /100WBC (0-0.00); PLATELET COUNT 320 K/uL (150-450); RBC 3.79 M/uL (3.00-5.00); RDW-CV 15.2 % (11.9-14.6); WBC 10.4 K/uL (4.0-11.0)
[2016-11-28 05:33] LABS: ALBUMIN 2.4 gm/dL (3.5-5.0); ANION GAP 10.6 (10.0-19.0); CREATININE 2.6 mg/dL (0.5-1.1); PHOSPHORUS 2.6 mg/dL (2.5-4.9); POTASSIUM 3.6 mMol/L (3.7-5.1)
--- NOTE | 2016-11-28 11:38 | NUR ---
A - PT SEEN D/T LOS. K+ 3.6, GLU 149, BUN/TUGGER OPERATOR 65/2.6, ALB 2.4. DIET: CARDIAC W/ INTAKE 25-75%, AVERAGE ABOUT 50%. MEAL SELECTIONS SMALL AT TIMES. PT STATES APPETITE IS BETTER, RECEPTIVE TO GLUCERNA BID. EST NEEDS: [id number] KCALS, 80-92 GM PROTEIN, 1 ML/KCAL FLUIDS. D - AT RISK W/ INADEQUATE ORAL INTAKE R/T DECREASED APPETITE AEB INTAKE RECORD AND MEAL SELECTIONS. I - GOAL: 50-75% INTAKE BY DISMISSAL. M/E - 1) WILL SEND GLUCERNA BID W/ BF AND DINNER. 2) OBTAINED ORDER TO LIBERALIZE DIET TO REGULAR. F/U IN 4-5 DAYS.
--- NOTE | 2016-11-28 14:00 | NUR ---
Spoke with patient regarding discharge plans. She says the therapist said she should stay here. Told her the [employer] has ordered a Dr. Gu consult and he will evaluate her. Told her if he recommends [facility] then we would see if and when they will have a bed. Discussed other options if no bed on [facility]. She says she thinks the therapy room at [facility] is better but that family thinks she should go to [facility]. She says her male friend is at [facility] and it would be easier for friends and family. She says she want to see if [facility] an option before making a decision regarding SNF. Left [facility] for Olinda, regarding Dr. Gu consult and patient's wanting to come to [facility]. Will follow.
--- NOTE | 2016-11-28 18:15 | NUR ---
Significant Event:Patient is alert and oriented times three. PERRLA. CSM intact. Lungs clear throughout. Left lower lobe crackles. CXR this shift. SR on telemetry. Patient did go into junctional and was hypotensive with this and then converted back and was normotensive. Bowel sounds active, no bm this shift. Miralax initial dosed this shift. Onofre catheter intact and draining adequate amounts of urine. Lasix 60mg IV given X1 this shift. 1400 dose held this shift due to patient being hypotensive. ACHS accu checks, coverage needed this shift. Bilateralf calf pumps in place. Heparin subcutaneous started this shift after Heparin gtt dc'd today. No complaints of pain. Patient takes medications whole without difficulty. Peripheral IV to right forearm is saline locked. Peripheral IV to left forearm is saline locked. Regular diet with 1200ml fluid restriction. Patient ambulates with 1 assist and gaitbelt. Follow up:
--- NOTE | 2016-11-29 05:10 | NUR ---
Significant Event: PATIENT ALERT AND ORIENTED X3 THIS SHIFT. PUPILS EQUAL AND REACTIVE. DENIES N/T, DENIES PAIN. LUNGS CLEAR AND DIMINISHED IN BASES. ON 3L O2 VIA NC WITH SATS 88-95. BOWEL SOUNDS ACTIVE. NO BM THIS SHIFT. VOIDS VIA CASTRO CATHETER. ON 1200ML FLUID RESTRICTION. COMPLIANT WITH THIS. STRICT I&Os. AC/HS ACCU CHECKS. PNEUMATIC PUMPS IN PLACE. PIV TO RIGHT FOREARM, AND LEFT FOREARM SALINE LOCKED. REGULAR DIET. GENERALIZED WEAKNESS, UP WITH 1 ASSIST AND GAITBELT. ATIVAN GIVEN AT 0425 FOR ANXIETY. COMPLIANT WITH ALL CARES THIS SHIFT. Follow up:
[2016-11-29 05:33] LABS: BASOPHIL # 0.1 K/uL (0.0-0.2); BASOPHIL % 0.7 %; EOSINOPHIL # 0.4 K/uL (0.0-0.5); HEMATOCRIT 35.1 % (30.0-46.0); HEMOGLOBIN 11.1 g/dL (10.0-15.0); IMMATURE GRANULOCYTE % 0.3 %; LYMPHOCYTE # 1.2 K/uL (0.8-4.0); LYMPHOCYTE % 13.2 %; MCH 26.9 pg (27.0-34.0); MCHC 31.6 gm/dL (32.0-36.5); MONOCYTE # 0.7 K/uL (0.0-1.0); MPV 9.6 fl (9.4-12.4); NEUTROPHIL # (ANC) 6.7 K/uL (1.8-7.8); NEUTROPHIL % 73.8 %; NRBC % 0 /100WBC (0-0.00); PLATELET COUNT 341 K/uL (150-450); RBC 4.13 M/uL (3.00-5.00); RDW-CV 15.1 % (11.9-14.6)
[2016-11-29 05:48] LABS: ALBUMIN 2.6 gm/dL (3.5-5.0); ANION GAP 8.3 (10.0-19.0); CALCIUM 8.5 mg/dL (8.5-10.5); CREATININE 2.4 mg/dL (0.5-1.1); MAGNESIUM 2.1 mg/dL (1.8-2.6); POTASSIUM 4.3 mMol/L (3.7-5.1)
--- NOTE | 2016-11-29 14:00 | NUR ---
Spoke with Olinda on [facility] and they can accept patient on Friday. Talked with patient and she wants to go to [facility]. Note on chart for Anticipate transfer to [facility] on Friday 12/01 at 0900. Will follow.
--- NOTE | 2016-11-29 18:43 | NUR ---
Significant Event: Patient is A&O x3. Follows commands. Equal strength in all extremities but has generalized weakness. Denies nembness & tingling. VSS. Complained of pain in her R) hip that is chronic & I gave her Tylenol @ 1636 with relief noted. AC/HS accuchecks. IV to L) wrist SL & IV to R) posterior FA SL. Onofre draining yellow urine and is to be left in for strict I&O. Strict daily standing weight. Up with 1 assist, gait belt, and walker. On 2-3L O2 by NC. 1200 ml fluid restriction. Cooperative with cares. Last BM 11/24. [facility] Follow up: Plan for [facility] Friday 12/01 @ 0900.
--- NOTE | 2016-11-29 20:39 | NUR ---
PATIENT ARRIVED TO UNIT AT 1930 VIA WHEELCHAIR ACCOMPANIED BY STAFF MEMBER. SHE IS ALERT AND ORIENTED. PIVOT TRANSFER PERFORMED TO PLACE PATIENT IN BED. HOB ELEVATED. CASTRO CATHETER IN PLACE. BEDSIDE REPORT IS OBTAINED FROM RN CARING FOR PATIENT. VS OBTAINED AND ARE STABLE. PATIENT IS ON 3L O2 PER NC. PATIENT DENIES ANY PAIN OR DISCOMFORT. CALL LIGHT WITHIN REACH. BED ALARM IN PLACE.
--- NOTE | 2016-11-30 04:21 | NUR ---
Significant Event: PATIENT TRANSFERRED FROM ICU. PATIENT IS ALERT AND ORIENTED. VERY PLEASANT. DENIES PAIN THROUGHT. UP X1 ASSIST WITH GAIT BELT. SALINE LOCKED. ACCUCHECKS ACHS. STRICT I&O. CASTRO TO BE LEFT IN PER DR. CANELA. ATIVAN AT 2250 LAST NIGHT FOR ANXIETY. 1200ML FR. WEARS 3L O2. Follow up:TRANSFER TO [facility] ON FRIDAY. NEW TO INSULIN. WILL NEED EDUCATION PRIOR TO DISCHARGE.
[2016-11-30 05:28] LABS: BASOPHIL % 0.4 %; EOSINOPHIL # 0.4 K/uL (0.0-0.5); EOSINOPHIL % 3.2 %; HEMATOCRIT 36.8 % (30.0-46.0); HEMOGLOBIN 11.6 g/dL (10.0-15.0); IMMATURE GRANULOCYTE # 0.1 K/uL (0.0-0.3); IMMATURE GRANULOCYTE % 0.4 %; LYMPHOCYTE # 1.2 K/uL (0.8-4.0); LYMPHOCYTE % 10.3 %; MCH 26.6 pg (27.0-34.0); MCHC 31.5 gm/dL (32.0-36.5); MCV 84.4 fl (83.0-98.0); MONOCYTE # 0.9 K/uL (0.0-1.0); MONOCYTE % 7.6 %; MPV 9.9 fl (9.4-12.4); NEUTROPHIL # (ANC) 8.9 K/uL (1.8-7.8); NEUTROPHIL % 78.1 %; NRBC % 0 /100WBC (0-0.00); PLATELET COUNT 360 K/uL (150-450); RBC 4.36 M/uL (3.00-5.00); RDW-CV 14.9 % (11.9-14.6); WBC 11.4 K/uL (4.0-11.0)
[2016-11-30 05:45] LABS: ALBUMIN 2.6 gm/dL (3.5-5.0); CREATININE 2.4 mg/dL (0.5-1.1); PHOSPHORUS 2.8 mg/dL (2.5-4.9)
[2016-11-30 06:11] LABS: ANION GAP 9.1 (10.0-19.0); MAGNESIUM 2.1 mg/dL (1.8-2.6); POTASSIUM 4.1 mMol/L (3.7-5.1)
--- NOTE | 2016-11-30 19:33 | NUR ---
Significant Event: A/O X 3. AMBULATES 1 ASSIST/WALKER/GAIT BELT. HAS NITROPATCH TO ANT. CHEST. ON FLUID RESTRICT 1200 ML/24 HOURS. PT. COMPLIANT WITH THIS. NSR IN 50-60'S. FAIR APPETITE. 2-3 LPM NC 02, SATS 94%. NO RESP. DISTRESS NOTED. SBP 113-152. CRET 2.4 GFR 18. BM TODAY. CASTRO REMOVED AT 1600. Follow up: CONT TO MONITER STATUS.
[2016-12-01 05:14] LABS: BASOPHIL % 0.3 %; EOSINOPHIL # 0.4 K/uL (0.0-0.5); EOSINOPHIL % 3.2 %; HEMATOCRIT 34.7 % (30.0-46.0); IMMATURE GRANULOCYTE # 0.1 K/uL (0.0-0.3); IMMATURE GRANULOCYTE % 0.5 %; LYMPHOCYTE # 1.5 K/uL (0.8-4.0); LYMPHOCYTE % 12.4 %; MCHC 31.7 gm/dL (32.0-36.5); MONOCYTE % 8.5 %; MPV 9.6 fl (9.4-12.4); NEUTROPHIL # (ANC) 8.8 K/uL (1.8-7.8); NEUTROPHIL % 75.1 %; NRBC % 0 /100WBC (0-0.00); PLATELET COUNT 301 K/uL (150-450); RBC 4.08 M/uL (3.00-5.00); RDW-CV 14.9 % (11.9-14.6); WBC 11.8 K/uL (4.0-11.0)
--- NOTE | 2016-12-01 05:22 | NUR ---
Significant event: Pt is A&Ox3. VSS on 2L O2/NC. IV to L wrist and R forearm SL and flush well. Lungs clear/dim. No BM's, voided x1 with 250 out. Bladder scanner showed 250ml retained in bladder post void. Up one assist with walker to bathroom. PRN ativan given x1 for anxiety. ACHS checks. Regular diet with 1200 ml FR. Follow up: Transfer to [facility] at 0900 today
[2016-12-01 05:32] LABS: ALBUMIN 3.4 gm/dL (3.5-5.0); ANION GAP 10.6 (10.0-19.0); CALCIUM 9.4 mg/dL (8.5-10.5); CREATININE 2.2 mg/dL (0.5-1.1); PHOSPHORUS 2.9 mg/dL (2.5-4.9); POTASSIUM 3.6 mMol/L (3.7-5.1)
--- NOTE | 2016-12-01 10:35 | NUR ---
PATIENT WAS ADMITTED ON11/24/16 WITH BRADYCARDIA AND SHORTNESS OF BREATH. PATIENT SPENT A FEW DAYS IN ICU AND THEN WAS TRANSFERED TO PCU. PATIENT IS ALERT AND ORIENTED AMBULATES WITH 1 ASSIST AND A WALKER. VITAL SIGNS THIS AM ARE 98.6, 67, 94%4 LI, 167/74, 16.
== END 2016-12-01 10:50 | DRG 280 ==
LOC: GMED 14:39 → GPCU 17:58 → GICU 17:58 → GPCU 11-29 20:14
PROVIDERS: Emergency Medicine; Family Medicine; Internal Medicine; Internal Medicine Cardiovascular Disease; Internal Medicine Interventional Cardiology; Internal Medicine Nephrology; Nurse Practitioner; Nurse Practitioner Acute Care; Nurse Practitioner Family; ADMIT Family Medicine
DX: I13.0 Hypertensive heart and chronic kidney disease with heart failure and stage 1 through stage 4 chronic kidney disease, or unspecified chronic kidney disease (principal); J96.21 Acute and chronic respiratory failure with hypoxia; I21.4 Non-ST elevation (NSTEMI) myocardial infarction; J96.02 Acute respiratory failure with hypercapnia; J18.9 Pneumonia, unspecified organism; N17.9 Acute kidney failure, unspecified; E11.22 Type 2 diabetes mellitus with diabetic chronic kidney disease; N18.3 Chronic kidney disease, stage 3 (moderate); E44.0 Moderate protein-calorie malnutrition; R13.10 Dysphagia, unspecified; I27.2 Other secondary pulmonary hypertension; I50.33 Acute on chronic diastolic (congestive) heart failure; E11.65 Type 2 diabetes mellitus with hyperglycemia; I48.0 Paroxysmal atrial fibrillation; F41.1 Generalized anxiety disorder; E78.5 Hyperlipidemia, unspecified; E03.9 Hypothyroidism, unspecified; Z66 Do not resuscitate; R00.1 Bradycardia, unspecified; Z79.84 Long term (current) use of oral hypoglycemic drugs; I25.10 Atherosclerotic heart disease of native coronary artery without angina pectoris; H35.30 Unspecified macular degeneration; Z68.24 Body mass index [BMI] 24.0-24.9, adult; I08.3 Combined rheumatic disorders of mitral, aortic and tricuspid valves; Z85.51 Personal history of malignant neoplasm of bladder; Z87.891 Personal history of nicotine dependence; Z96.642 Presence of left artificial hip joint; Z79.82 Long term (current) use of aspirin; Z79.899 Other long term (current) drug therapy; Z88.8 Allergy status to other drugs, medicaments and biological substances; Z91.018 Allergy to other foods; Z91.010 Allergy to peanuts
CPT/HCPCS: J1644; J1940; J2001; J2185; J2270; J2405; J3480; J7040; J7050; P9047; Q0162